=== PATIENT | female | born 1965 | race African-American/Black ===

== ENCOUNTER 2017-12-15 09:47 | Inpatient (IN) | payer OTHER, SELFPAY ==
[~2017-12-15 09:47] MED LIST: ISOVUE-370 76%-LOCM 1 ML ONE
[2017-12-15] MEDS ORDERED: Succinylcholine Chloride 20 MG/ML 10 ml SYRINGE FS ONE (10:18)
[2017-12-15] MEDS ORDERED: Naloxone HCl 2 mg/2 ml Syringe ONE (10:29)
--- NOTE | 2017-12-15 10:35 | CT ---
CT HEAD WITHOUT CONTRAST: Date: 12/15/17 Multiple axial tomograms obtained through the head without IV enhancement. INDICATION: Stroke alert with left side weakness. Comparison made to prior head CT of 09/22/16. FINDINGS: No evidence of hemorrhage or mass. No acute cortical infarct identified. IMPRESSION: No acute finding. Findings relayed to Dr. Saini at 1000 hours. CODE CR. POS: [facility]
--- NOTE | 2017-12-15 11:10 | RAD ---
PORTABLE CHEST 1 VIEW: Date: 12/15/17 Time: 1047 hours HISTORY: Left-sided weakness. FINDINGS: Comparison made with exam of 04/20/17. There is continued elevation of the right hemidiaphragm. Heart size is normal. No confluent areas of consolidation, pneumothoraces, or pleural effusions are seen. IMPRESSION: No radiographic evidence of acute cardiopulmonary process. POS: OFF
[2017-12-15 11:28] LABS: Amphetamine Not Detected (NotDetected); Barbiturates Screen Not Detected (NotDetected); Benzodiazepine Screen Not Detected (NotDetected); Cocaine Metabolite Screen Not Detected (NotDetected); Medtox Control Line Valid? VALID (VALID); Medtox Reader # READER 1; Methadone Not Detected (NotDetected); Methamphetamine Not Detected (NotDetected); Opiate Screen Not Detected (NotDetected); Oxycodone Screen Not Detected (NotDetected); Phencyclidine (PCP) Not Detected (NotDetected); THC/Cannabinoid Screen Not Detected (NotDetected); Tricyclic Screen Not Detected (NotDetected)
[2017-12-15 11:32] LABS: Bilirubin Negative (Negative); Blood, Urine Negative (Negative); Glucose, Urine (Dipstick) >=1000 mg/dL (Negative); Leukocyte Negative (Negative); Nitrite Negative (Negative); Protein, Urine (Dipstick) Negative (Neg-Trace); Urobilinogen 0.2 mg/dL (0.2-1.0)
[2017-12-15 11:33] LABS: Clarity CLEAR (Clear); Pregnancy Test - Urine (BHCG) Negative (Negative); Pregu Control Background? CLEAR/WHITE (CLR/WHITE); Pregu Control Bar Appear? YES (CONTROL BAR)
--- NOTE | 2017-12-15 11:39 | CT ---
CT PERFUSION EVALUATION WITH CONTRAST CTA OF THE HEAD WITH IV CONTRAST AND 3D REFORMATTED IMAGING CTA OF THE NECK WITH IV CONTRAST AND 3D REFORMATTED IMAGING: INDICATION: Stroke alert examination for left-sided weakness performed by Dr. Saini. COMPARISON: Noncontrast CT examination of the brain dated 12/15/17 at 9:55 a.m. FINDINGS: PERFUSION EVALUATION: No asymmetric blood flow, blood volume, or abnormal mean transit time is evident to suggest acute inf arct. CTA OF THE HEAD: No hemodynamically significant stenosis, occlusion, or aneurysmal formation is seen involving the ant erior cerebral artery, middle cerebral artery, internal carotid arteries, basilar, E[employer]ING [employer], and intracran ial vertebral arteries. No area of abnormal enhancement is evident. Septum pellucidum and third ventricle are midline. The cortical subcortical differentiation appears preserved. Visualized soft tissues of the head appear within normal limits. There are a few partially opacified right mastoid air cells. Paranasal sinuses are clear. The skull is intact. CTA OF THE NECK: This exam is compared to a recently performed CTA of the chest dated 12/08/16. The suspicious nodular opacity within the superior segment of the right lower lobe is better detailed on a recently perform ed CTA of the chest. Right hilar enlarged lymph nodes are similar. Incidental note is made of an an omalous draining pulmonary vein from the region of the lingula and left upper lobe extending up to th e level of the brachiocephalic. There is some mild vascular calcification involving the aortic arch. Brachiocephalic, left common carotid, and left subclavian artery appear widely patent. The right s ubclavian artery appears widely patent. The vertebral artery origin and cervical course of the verte bral arteries are widely patent. The common carotid arteries bilaterally appear widely patent. Ther e is a retropharyngeal course of the common carotid arteries around the mid cervical region. The bif urcation is in a retropharyngeal location. No hemodynamically significant stenosis is evident involv ing the cervical ICA. There is some suspected atherosclerotic irregularity involving the petrous seg ment of both ICAs. There is some mild to moderate atherosclerotic irregularity involving the precave rnous and cavernous ICAs bilaterally. Visualized aerodigestive tract appears within normal limits. There is a 9 mm hypodensity within the left thyroid lobe. There is a 1 cm hypodensity within the right mid thyroid lobe. No pathologically enlarged lymph nodes are seen within the neck. No definite acute osseous abnormality is evident. IMPRESSION: 1. CT perfusion evaluation demonstrates no evidence to suggest the presence of acute infarct. 2. No hemodynamically significant stenosis, occlusion, or aneurysmal formation seen. There is some mild to moderate atherosclerotic irregularity involving the precavernous and cavernous internal carot id arteries bilaterally. There is some mild atherosclerotic irregularity involving the petrous segme nts of both internal carotid arteries. 3. 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 4. Right lower lobe superior segment pulmonary nodule suspicious for malignancy with associated righ t hilar lymph nodes better detailed on the CTA of the thorax 12/08/16. 4. Findings are discussed with Dr. Saini at 10:20 a.m. on 12/15/17. CODE CR POS: [facility]
[2017-12-15 11:43] LABS: #Eosinphils 0.2 thou/uL (0.0-0.7); #Lymphocytes 2.3 thou/uL (1.20-3.40); #Monocytes 0.5 thou/uL (0.11-0.59); #Neutrophils 5.7 thou/uL (1.40-6.50); %Basophils 0.4 % (0.0-1.0); %Eosinophils 2.8 % (0.0-10.0); %Lymphocytes 26.8 % (21.0-51.0); %Monocytes 5.2 % (0.0-10.0); %Neutrophils 64.8 % (42.0-75.0); Hemoglobin 13.4 g/dL (12.0-16.0); Mean Corpuscular HGB CONC 30.7 g/dL (32.0-36.0); Mean Corpuscular Hemoglobin 24.1 pg (27.0-31.0); Mean Corpuscular Volume 78.5 fl (81.0-99.0); Mean Platelet Volume 6.7 fL (7.4-10.4); Platelet Count 263 thou/uL (130-400); RBC Distribution Width 13.6 % (11.5-14.5); Red Blood Cell (RBC) Count 5.56 mill/uL (4.20-5.40); White Blood Cell (WBC) Count 8.7 thou/uL (4.8-10.8)
[2017-12-15 12:02] LABS: ALT (SGPT) 12 U/L (8-55); AST (SGOT) 13 U/L (5-34); Albumin 3.4 g/dL (3.5-5.0); Alkaline Phosphatase 171 U/L (40-150); Anion Gap 13 mmol/L (10-20); BUN (Urea Nitrogen) 9 mg/dL (7.0-18.7); Bilirubin, Total 0.5 mg/dL (0.2-1.2); CK (CPK) 68 U/L (29-168); Calc. Creatinine Clearance 0 mL/min (70-130); Carbon Dioxide 23 mmol/L (22-29); Chloride 99 mmol/L (98-107); Estimated GFR-MDRD Greater than 90; Globulin 3.6 g/dL (2.4-3.5); Glucose 343 mg/dL (70-105); Potassium 4.3 mmol/L (3.5-5.1); Sodium 131 mmol/L (136-145)
[2017-12-15 12:07] LABS: CKMB 2.3 ng/mL (0-6.6); Troponin I Less than 0.010 ng/mL (< 0.028)
[2017-12-15 14:36] LABS: Troponin I Less than 0.010 ng/mL (< 0.028)
[2017-12-15] MEDS ORDERED: Bisacodyl 5 MG TAB PO PRN (15:47)
[2017-12-15] MEDS ORDERED: Dextrose 50% Abboject 50 ML SYRINGE SLOW IVP PRN (15:50)
[2017-12-15] MEDS ORDERED: Dextrose 5% in Water 1,000 ML IV PRN (15:50)
[2017-12-15 16:09] VITALS: BMI 48.2
[2017-12-15 17:30] LABS: Troponin I Less than 0.010 ng/mL (< 0.028)
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
[2017-12-15] MEDS: HumaLOG 300 UNITS/3 ML VIAL SC PRN (22:36)
--- NOTE | 2017-12-16 01:41 | CON ---
DATE OF CONSULTATION: 12/15/2017 CARDIOLOGY CONSULTATION: PRIMARY FISHER TROLL LINE: Dr. Wong Hayes. REASON FOR CONSULTATION: Episode of unresponsiveness, possible syncope. HISTORY OF PRESENT ILLNESS: Tawanda is a pleasant 52-year-old woman. The patient had an episode of u nresponsiveness today as will be outlined below. The patient's history is obtained from the spouse, her . He said they went to bed about 9 o'c lock, yesterday morning about 4:42, she woke up and then went back to sleep. Her subsequentl y found her unresponsive, trying to awaken her, but was unable to do so. The family had to call an a mbulance as she would not respond. In the emergency room, the patient was extremely unresponsive and was about to be intubated for airway protection. She was given Narcan and ultimately woke up and di d not require intubation since she has been alert and oriented. Imaging did not reveal stroke. No e tiology of her symptoms has been found so far. REVIEW OF SYSTEMS: Constitutional: No significant weight gain or loss. Vision: No changes. Hearin g: No changes. Pulmonary: No cough or wheezing. Gastrointestinal: No nausea, vomiting, or diarrh ea. Skin: No rashes. Neurologic: No unilateral weakness or numbness. Psychiatric: No unusual de pression or anxiety. Hematologic: No unusual bruising. Genitourinary: No burning with urination. PAST MEDICAL HISTORY: 1. Sarcoidosis. 2. Diabetes. 3. Asthma. PAST SURGICAL HISTORY: Tubal ligation and LINQ recorder placement. SOCIAL HISTORY: No tobacco or alcohol. FAMILY HISTORY: Diabetes. ALLERGIES: LATEX. MEDICATIONS: 1. ProAir. 2. Norvasc. 3. Lipitor. 4. Insulin. 5. Synthroid. PHYSICAL EXAMINATION: GENERAL: A pleasant patient, in no distress. VITAL SIGNS: Her blood pressure 135/94, pulse 90, it is regular. She is 5 feet 1 inch tall, 255 margie nds, BMI is 48.2. HEENT: Eyes: Sclerae nonicteric. Mouth: mucous membranes are moist. NECK: Supple, no lymphadenopathy. LUNGS: Clear, no wheezing, rales or rhonchi. CARDIAC: Normal S1, normal S2. There is no murmur, rub or gallop. ABDOMEN: Obese, nontender, no hepatosplenomegaly. EXTREMITIES: Warm, dry, no clubbing or cyanosis. There is no edema. SKIN: Warm and dry. PERTINENT LABORATORY AND X-RAY FINDINGS: Troponin levels were negative. Sodium 131. Glucose 343. CT scan did not reveal evidence of stroke. ASSESSMENT: 1. Episode of unresponsiveness profound unknown etiology. 2. Previous syncopal episode. PLAN: 1. LINQ will be interrogated. 2. Repeat echocardiogram. 3. Dr. Hayes to check the patient tomorrow.
[2017-12-16 05:34] LABS: #Eosinphils 0.2 thou/uL (0.0-0.7); #Lymphocytes 2.5 thou/uL (1.20-3.40); #Monocytes 0.6 thou/uL (0.11-0.59); #Neutrophils 7.6 thou/uL (1.40-6.50); %Basophils 0.4 % (0.0-1.0); %Eosinophils 1.8 % (0.0-10.0); %Monocytes 5.1 % (0.0-10.0); %Neutrophils 69.8 % (42.0-75.0); Hemoglobin 11.5 g/dL (12.0-16.0); Mean Corpuscular HGB CONC 31.4 g/dL (32.0-36.0); Mean Corpuscular Hemoglobin 24.6 pg (27.0-31.0); Mean Corpuscular Volume 78.3 fl (81.0-99.0); Mean Platelet Volume 6.3 fL (7.4-10.4); Platelet Count 310 thou/uL (130-400); RBC Distribution Width 13.7 % (11.5-14.5); Red Blood Cell (RBC) Count 4.67 mill/uL (4.20-5.40); White Blood Cell (WBC) Count 10.8 thou/uL (4.8-10.8)
[2017-12-16 05:55] LABS: Anion Gap 12 mmol/L (10-20); BUN (Urea Nitrogen) 10 mg/dL (7.0-18.7); Calc. Creatinine Clearance 150 mL/min (70-130); Calcium 8.2 mg/dL (7.8-10.44); Carbon Dioxide 25 mmol/L (22-29); Chloride 100 mmol/L (98-107); Estimated GFR-MDRD 89; Glucose 413 mg/dL (70-105); Potassium 4.1 mmol/L (3.5-5.1); Sodium 133 mmol/L (136-145)
[2017-12-16] MEDS: HumaLOG 300 UNITS/3 ML VIAL SC PRN ×4 (07:54→21:54)
[2017-12-16] MEDS: Enoxaparin Sodium 40 MG/0.4 ML SYRINGE SC SCH (08:51)
--- NOTE | 2017-12-16 10:08 | CON ---
DATE OF CONSULTATION: 12/15/2017 Ms. Neff who has seen Dr. Xie in for many years. She is seen in the hospital today because she is unable to wake up. Unresponsive. It looks like cooper cking her records from 2012, she has similar issues with not awaken up. She did have a CT head and neck angio, which showed the right superior segment nodule in the right hi lar nodule, which apparently has been stable for at least 2 years. She had a cough, chest pain, chil ls, sweats. She says she sees Dr. Xie for sarcoidosis. PAST MEDICAL HISTORY: Asthma, diabetes, sarcoidosis, high cholesterol. The last time she saw Dr. Singh tobias in the office about 2 years ago. Though, she has had multiple imaging studies done in the hospital. During the period, Dr. Xie has been consulted. She had multiple imaging studies of the brain because of unknown neurological issues . On 04/2017, she was hospitalized and seen by Cardiology for syncopal episode. Cardiac workup done at that time told was normal. PAST SURGICAL HISTORY: Tubal ligation. SOCIAL AND FAMILY HISTORY: No alcohol or tobacco abuse. MEDICATIONS: List of medicine home on amlodipine 5, nortriptyline 25, Synthroid 25, insulin, Lipito r 10, albuterol as needed. SOCIAL HISTORY: Unremarkable. REVIEW OF SYSTEMS: Otherwise, 10-point negative. PHYSICAL EXAMINATION: GENERAL: Appears to be in no acute distress, obese patient. VITAL SIGNS: Blood pressure of 135/94, sats are 96% on room air, respiration rate 18, temperature 98 . CHEST: No crackles, rubs, or wheezing. CARDIAC: Normal S1, S2. No gallops. ABDOMEN: Soft. No masses. LABORATORY DATA: White count 8000, H and H 13 and 43, platelet count is normal. Sugar is 346, crea tinine is normal. Please note, a chest x-ray was completely normal. CT of the head and neck, brain perfusion was done shows no evidence of acute infarct. No evidence of stenosis, right lower lobe superior segment nodule, right hilar lymph node. IMPRESSION: 1. Unable to wake up, etiology unclear. 2. Multiple episodes of syncope. 3. Asthma. 4. Sleep apnea, diabetes, morbid obesity, abnormal CT. Dr. Xie seen in the past. We will let him know about the patient's admission. Old records apparen tly show a similar problem. PET scan may be appropriate to rule out any evidence of malignancy, but I doubt with continued stability of the lesion that this is a malignant process. She is a nonsmoker. She probably has sleep apnea. She has been tested, but never went back for a titration study. She probably needs to have another repeat sleep study. We will notify Dr. Xie. This is a consultation, 70 minutes, 50% direct patient care.
--- NOTE | 2017-12-16 12:22 | PDOC.CTH ---
Cardiology Progress Note - Subjective She is doing better now. She has not had any more altered mentation. Back top baseline. - Objective Vital Signs Temp Pulse Pulse Pulse Resp BP BP 12/16/17 11:34 98.0 F 95 16 12/16/17 10:15 101 H 109 H 161/92 H 151/86 H 12/16/17 08:45 98.2 F 105 H 20 12/16/17 08:00 98.2 F 105 H 20 12/16/17 03:31 98.4 F 90 16 BP Pulse Ox 12/16/17 11:34 149/92 H 94 L 12/16/17 10:15 12/16/17 08:45 12/16/17 08:00 175/76 H 96 12/16/17 03:31 109/64 93 L Weight 255 lb 12/15/17 12/16/17 12/17/17 06:59 06:59 06:59 Intake Total 960 Balance 960 - Physical Examination General/Neuro: alert & oriented x3, NAD Neck: no JVD present Lungs: CTA, unlabored respirations Heart: RRR Abdomen: NT/ND Extremities: + edema B (trace) - Telemetry Telemetry Rhythm: NSR - Labs Result Diagrams: 12/16/17 04:48 12/16/17 04:48 Troponin/CKMB CK-MB (CK-2) 2.3 ng/mL (0-6.6) 12/15/17 10:48 Troponin I Less than 0.010 ng/mL (< 0.028) 12/15/17 16:56 - Assessment/Plan 1. AMS 2. Syncope 3. 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 5. Lung nodule, may be related to sarcoidosis. PLAN - No arrhythmias seen on LINQ during episode of syncope. Telemetry during AMS was also unremarkable as well as BP. - Unlikely that her AMS is related to a cardiac issue. - Awaiting neurology evaluation.
[2017-12-16] MEDS ORDERED: Nitroglycerin 0.4 MG TAB (25 Tab Bottle) ONE (14:44)
[2017-12-16] MEDS ORDERED: Nitroglycerin 0.4 MG TAB (25 Tab Bottle) SL PRN (14:56)
[2017-12-16 15:18] LABS: Troponin I Less than 0.010 ng/mL (< 0.028)
--- NOTE | 2017-12-16 15:45 | PDOC.PN ---
- Subjective Encounter Start Date: 12/16/17 Encounter Start Time: 10:00 Pt seen for followup re: acute encephalopathy. Denies chest pain or shortness of breath. Reports RUE weakness. - Objective MAR Reviewed: Yes Vital Signs & Weight: Vital Signs (12 hours) Temp Pulse Pulse Pulse Resp BP BP 12/16/17 15:12 98.4 F 105 H 16 12/16/17 11:34 98.0 F 95 16 12/16/17 10:15 101 H 109 H 161/92 H 151/86 H 12/16/17 08:45 98.2 F 105 H 20 12/16/17 08:00 98.2 F 105 H 20 12/16/17 07:15 103 H 105 H 142/68 H 175/76 H BP Pulse Ox 12/16/17 15:12 142/92 H 92 L 12/16/17 11:34 149/92 H 94 L 12/16/17 10:15 12/16/17 08:45 12/16/17 08:00 175/76 H 96 12/16/17 07:15 Weight Weight 255 lb I&O: 12/15/17 12/16/17 12/17/17 06:59 06:59 06:59 Intake Total 960 Balance 960 Result Diagrams: 12/16/17 04:48 12/16/17 04:48 Additional Labs: Accuchecks 12/16/17 12/16/17 12/15/17 10:57 05:43 20:46 POC Glucose 495 H 418 H 341 H EKG Reviewed by me: Yes (Tele: NSR) Phys Exam - Physical Examination Morbid obesity HEENT: PERRLA, moist MMs, sclera anicteric, oral pharynx no lesions Neck: no nodes, no JVD, supple, full ROM Respiratory: no wheezing, no rales, no rhonchi, clear to auscultation bilateral Cardiovascular: RRR, no rub Gastrointestinal: soft, non-tender, positive bowel sounds distended Neurological: non-focal, normal sensation, moves all 4 limbs Power 4+/5 RUE, 5/5 other 3 extremities Psychiatric: normal affect, A&O x 3 Skin: no rash Dx/Plan (1) Encephalopathy acute Code(s): G93.40 - ENCEPHALOPATHY, UNSPECIFIED Status: Acute Comment: Improved, await neurology input (2) Weakness Code(s): R53.1 - WEAKNESS Status: Acute Comment: RUE weakness is not consistent, continue to monitor (3) Asthma Code(s): J45.909 - UNSPECIFIED ASTHMA, UNCOMPLICATED Status: Chronic Qualifiers: Asthma severity: mild intermittent Comment: stable (4) DM2 (diabetes mellitus, type 2) Status: Chronic Comment: accuchecks, insulin sliding scale (5) HLD (hyperlipidemia) Code(s): E78.5 - HYPERLIPIDEMIA, UNSPECIFIED Status: Chronic Comment: continue statin (6) HTN (hypertension) Code(s): I10 - ESSENTIAL (PRIMARY) HYPERTENSION Status: Chronic Qualifiers: Hypertension type: essential hypertension Qualified Code(s): I10 - Essential (primary) hypertension Comment: Monitor vital signs, titrate antihypertensives as needed (7) Sarcoidosis Code(s): D86.9 - SARCOIDOSIS, UNSPECIFIED Status: Chronic Comment: Appreciate pulmonology input (8) Uterine bleeding Code(s): N93.9 - ABNORMAL UTERINE AND VAGINAL BLEEDING, UNSPECIFIED Status: Chronic Comment: needs to see Gyne when stable - Plan * . Review of Systems - Review of Systems Constitutional: weakness. negative: fever, chills, sweats, malaise Respiratory: negative: Cough, Shortness of Breath, Hemoptysis, SOB with Excertion, Pleuritic Pain, Wheezing Cardiovascular: negative: chest pain, palpitations, orthopnea, paroxysmal nocturnal dyspnea, edema, light headedness Gastrointestinal: negative: Nausea, Vomiting, Abdominal Pain, Diarrhea, Constipation, Melena, Hematochezia Skin: negative: Rash, Lesions, Christopher, Bruising Neurological: Weakness - Medications/Allergies Allergies/Adverse Reactions: Allergies Allergy/AdvReac Type Severity Reaction Status Date / Time latex AdvReac Verified 12/15/17 15:40 Medications: Current Medications Bisacodyl (Dulcolax) 10 mg PO DAILYPRN PRN PRN Reason: Constipation Dextrose/Water (Dextrose 50%) 25 gm SLOW IVP PRN PRN PRN Reason: Hypoglycemia Enoxaparin Sodium (Lovenox) 40 mg SC 0900 MAGDIEL Last Admin: 12/16/17 08:51 Dose: 40 mg Glucagon (Glucagon) 1 mg IM PRN PRN PRN Reason: Hypoglycemia Dextrose/Water (D5w) 1,000 mls @ 0 mls/hr IV .Q0M PRN; As Directed PRN Reason: Hypoglycemia Insulin Human Lispro (Humalog) 0 units SC .MILD SLIDING SCALE PRN PRN Reason: Mild Correctional Scale Last Admin: 12/16/17 12:12 Dose: 6 unit Insulin Human Lispro (Humalog) 0 units SC .MILD SLIDING SCALE PRN; Protocol PRN Reason: CUSTOM BEDTIME SLIDING SCALE Last Admin: 12/15/17 22:36 Dose: 5 unit Nitroglycerin (Nitrostat) 0.4 mg SL Q5MIN PRN PRN Reason: Chest Pain Last Admin: 12/16/17 14:45 Dose: 0.4 mg
[2017-12-16] MEDS ORDERED: PROVENTIL INHALER 6.7 G (200 INHALATIONS) INH PRN (16:33)
[2017-12-16] MEDS ORDERED: NPH, Human Insulin Isophane 300 UNIT/3 ML VIAL SC SCH (17:00)
[2017-12-16 20:57] LABS: Troponin I Less than 0.010 ng/mL (< 0.028)
[2017-12-16] MEDS: Nortriptyline HCl 25 MG CAP PO SCH (21:52)
[2017-12-16] MEDS: traMADol HCl 50 MG TAB PO PRN (21:57)
--- NOTE | 2017-12-16 23:42 | CON ---
DATE OF CONSULTATION: 12/16/2017 CONSULTING PHYSICIAN: Hospitalist Service. IMPRESSION: 1. Possible subclinical seizure. 2. Sarcoid. 3. Diabetes. 4. Asthma. 5. Obesity. 6. Hyperlipidemia. 7. Hypertension. PLAN: 1. EEG. 2. Monitor for further events before committing to anticonvulsant therapy. Ms. Neff is a 52-year-old black female with the above noted list of problems. She remembers being at home around 4:00 when she lost consciousness. She did not awaken until she was in the hospital. Upon awakening, she noted she had a headache. She was a bit dizzy and the right side of her body fel t strange. She had a CT of the brain and CTA, which were both unremarkable. Her carotids were clear . Her blood glucose was bit elevated, but otherwise her lab work was unremarkable. She has been al luated by Cardiology does not feel the event was cardiac related. She reports a history of a syncopa l event 2 years ago, but otherwise has not had any other episodes. PAST MEDICAL HISTORY: As listed above. ALLERGIES: LATEX. SOCIAL HISTORY: There is some reported drug and alcohol use. FAMILY HISTORY: Noncontributory. REVIEW OF SYSTEMS: No complaints of any prior neurologic events. PHYSICAL EXAMINATION: GENERAL: She is an overweight middle-aged woman lying in bed in no distress. HEENT: All within normal limits. NEUROLOGIC: She is alert and cooperative. Her speech is fluent and clear. Exam is nonfocal. She d oes not have any abnormal movements. She can walk independently, but does so slowly. EKG, normal sinus rhythm. SUMMARY: Given the duration of the unconsciousness without apparent etiology. A subclinical seizure remains a possibility be happy to follow up with her as an outpatient.
[2017-12-17] MEDS: Levothyroxine Sodium 25 MCG TAB PO SCH (06:19)
[2017-12-17] MEDS: HumaLOG 300 UNITS/3 ML VIAL SC PRN (06:19)
[2017-12-17] MEDS ORDERED: NPH, Human Insulin Isophane 300 UNIT/3 ML VIAL SC SCH (08:00)
[2017-12-17] MEDS: Amlodipine 5 MG TAB PO SCH (09:48)
[2017-12-17] MEDS: Atorvastatin Calcium 10 MG TAB PO SCH (09:49)
[2017-12-17] MEDS: traMADol HCl 50 MG TAB PO PRN (09:50)
[2017-12-17] MEDS: azaTHIOprine 50 MG TAB PO SCH (09:50)
[2017-12-17] MEDS: Enoxaparin Sodium 40 MG/0.4 ML SYRINGE SC SCH (10:30)
--- NOTE | 2017-12-17 11:02 | CON ---
DATE OF CONSULTATION: 12/16/2017 HISTORY OF PRESENT ILLNESS: Ms. Neff is in the hospital with complaints of altered mental status prior to calling EMS. She apparently vomited according to the admission history and physical, she does not recall any of this. We are consulted because of her presence in the hospital. PAST MEDICAL HISTORY: 1. 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 She was treated initially with steroids followed by Imuran. She has a long history taken back many years, stopping her Imuran whenever she can make appointments or does not feel like she needs it. 2. Diabetes. 3. 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 4. History of elevated liver enzymes, felt to be secondary to sarcoidosis. 5. History of mediastinoscopy to obtain a diagnosis of noncaseating granulomas. 6. History of herniated disk. 7. History of syncope. 8. History of a learning disability. 9. History of obesity. 10. History of tremendous weight loss with a neurological presentation for sarcoid. 11. History of PEG placement when she presented with sarcoid involving swallowing her brain creating swallowing dysfunction. There is slight resolution of all of her symptoms with treatment of her sarcoid with steroids followed by Imuran. 12. History of reflux disease. 13. History of cholecystectomy. 14. History of tubal ligation. 15. History of asthma. 16. History of foot surgery. 17. History of multiple frequent emergency visits here. 18. History of placement of LINQ recorder. FAMILY HISTORY: Positive for diabetes. SOCIAL HISTORY: She does not smoke, does not drink. She currently does not use drugs. ALLERGIES: She reports LATEX intolerance. MEDICATIONS: She was on ProAir, Norvasc, Lipitor, insulin, Synthroid, prior to admission. She had been seen by me for several years. REVIEW OF SYSTEMS: 12 point system review otherwise negative. PHYSICAL EXAMINATION: GENERAL: Patient has no recollection of vomiting today. VITAL SIGNS: She is afebrile. Heart rate in the 90s, respiratory rate is 16, blood pressure 161/92. HEENT: Pupils are equal. Sclerae is anicteric. Extraocular movements are full. NECK: Supple, no lymphadenopathy. LUNGS: Clear. HEART: Regular rhythm. S1 and S2 are normal. ABDOMEN: Soft and nontender. EXTREMITIES: Without clubbing, cyanosis, or edema. LABORATORY DATA: White count is 10.8, hemoglobin 11.5, platelets 310. Electrolytes are normal. Glucose 413. Elevated alkaline phosphatase. PRESENTATION: 1. Poorly controlled diabetes. 2. Altered mental status, followed by complaints of muscle weakness of unclear etiology. Magnetic resonance imaging has not been done. Noncontrast head CT showed nothing. Pulmonary nodule was noted. IMPRESSION: Sarcoidosis. It is unlikely that the nodular density is anything more than noncaseating granuloma. She continues to have intermittent multisystem symptoms and radiologic manifestations of active sarcoid. She never has had active pulmonary progressive sarcoid it is all been for most extra pulmonary nodule. Obviously, we will need to be followed as an outpatient. This is a 50 minute consult , greater than 50% of the time was spent on the unit coordinating care. CORBY
[2017-12-17] MEDS ORDERED: Dextrose 50% Abboject 50 ML SYRINGE SLOW IVP PRN (11:32)
[2017-12-17] MEDS ORDERED: Dextrose 5% in Water 1,000 ML IV PRN (11:32)
--- NOTE | 2017-12-17 11:36 | PDOC.PN ---
- Subjective Encounter Start Date: 12/17/17 Encounter Start Time: 11:34 -: old records requested/rev Subjective: nsg notes rev, dilip ovn, no new c/o but still feels "not well" - SO at [facility] -: de. apparently intermittent decreased mentation has been a progressive -: issue over the past few weeks along with several months of progressively elevated baseline blood glucose on home accuchecks. pt endorses having 3-4 loose BM for 1-2 weeks now accompanied by decreased oral intake but she states she has been very thirsty and continues to try and drink more water. also c/o of a recent "cold" - Objective Vital Signs & Weight: Vital Signs (12 hours) Temp Pulse Resp BP BP Pulse Ox 12/17/17 09:48 99 114/72 12/17/17 07:05 98.3 F 99 18 114/72 95 12/17/17 04:00 98.4 F 99 20 111/78 98 12/17/17 00:00 98.0 F 95 16 125/66 95 Weight Weight 255 lb I&O: 12/16/17 12/17/17 12/18/17 06:59 06:59 06:59 Intake Total 960 Balance 960 Result Diagrams: 12/16/17 04:48 12/16/17 04:48 Additional Labs: Accuchecks 12/17/17 12/16/17 12/16/17 04:42 20:48 17:10 POC Glucose 533 H 412 H 336 H 12/16/17 10:57 POC Glucose 495 H Phys Exam - Physical Examination Constitutional: NAD lying in hospital bed HEENT: PERRLA, sclera anicteric, oral pharynx no lesions slightly dry mm Respiratory: no wheezing, no rales, no rhonchi, clear to auscultation bilateral Cardiovascular: RRR, no significant murmur, no rub Gastrointestinal: soft, non-tender, no distention, positive bowel sounds Musculoskeletal: no edema, pulses present Neurological: moves all 4 limbs Psychiatric: A&O x 3 Deviation from normal: flat affect Dx/Plan - Plan * 52F hx of sarcoid p/w CC of altered mental status AMS * per description appears to be improved from event that precipitated admission * question of deviation from baseline with decreased mental status per SO at bedside * ? related to elev blood glucose levels * apprec card c/s * apprec neuro c/s * apprec pulm c/s concern for HNNK * diarrhea and decreased PO intake with longstanding hx of IDDM * start IVF NS @100, close I/O, check serum osm, A1C as well * monitor diarrhea and I/O * increase basal insulin but also increase short acting. if no improvement today , or elev serum osm >320, low theshold to initiate insulin gtt * d/w patient's at bedside * could have contributed to presentation IDDM, as above sarcoid, stable diet: diabetic activity: as marya, PT c/s dvt ppx Review of Systems - Medications/Allergies Allergies/Adverse Reactions: Allergies Allergy/AdvReac Type Severity Reaction Status Date / Time latex AdvReac Verified 12/15/17 15:40 Medications: Current Medications Albuterol Sulfate (Proventil Hfa) 2 puff INH Q4H PRN PRN Reason: SOB &/or Wheezing Amlodipine Besylate (Norvasc) 5 mg PO DAILY [facility] Last Admin: 12/17/17 09:48 Dose: 5 mg Aspirin (Aspirin Chewable) 81 mg PO DAILY [facility] Last Admin: 12/17/17 09:49 Dose: 81 mg Atorvastatin Calcium (Lipitor) 10 mg PO DAILY [facility] Last Admin: 12/17/17 09:49 Dose: 10 mg Azathioprine (Imuran) 100 mg PO DAILY [facility] Last Admin: 12/17/17 09:50 Dose: 100 mg Bisacodyl (Dulcolax) 10 mg PO DAILYPRN PRN PRN Reason: Constipation Dextrose/Water (Dextrose 50%) 25 gm SLOW IVP PRN PRN PRN Reason: Hypoglycemia Dextrose/Water (Dextrose 50%) 25 gm SLOW IVP PRN PRN PRN Reason: Hypoglycemia Enoxaparin Sodium (Lovenox) 40 mg SC 0900 [facility] Last Admin: 12/17/17 10:30 Dose: 40 mg Glucagon (Glucagon) 1 mg IM PRN PRN PRN Reason: Hypoglycemia Glucagon (Glucagon) 1 mg IM PRN PRN PRN Reason: Hypoglycemia Dextrose/Water (D5w) 1,000 mls @ 0 mls/hr IV .Q0M PRN; As Directed PRN Reason: Hypoglycemia Dextrose/Water (D5w) 1,000 mls @ 0 mls/hr IV .Q0M PRN; As Directed PRN Reason: Hypoglycemia Sodium Chloride (Normal Saline 0.9%) 1,000 mls @ 100 mls/hr IV .Q10H MAGDIEL Insulin Human NPH (Humulin N) 50 unit SC QAM-WM MAGDIEL Insulin Human NPH (Humulin N) 50 unit SC QPM-WM MAGDIEL Insulin Human Regular (Humulin R) 0 units SC .MODERATE SLIDING SC PRN PRN Reason: Moderate Correctional Scale Levothyroxine Sodium (Synthroid) 25 mcg PO 0600 [facility] Last Admin: 12/17/17 06:19 Dose: 25 mcg Nitroglycerin (Nitrostat) 0.4 mg SL Q5MIN PRN PRN Reason: Chest Pain Last Admin: 12/16/17 14:45 Dose: 0.4 mg Nortriptyline HCl (Pamelor) 25 mg PO HS [facility] Last Admin: 12/16/17 21:52 Dose: 25 mg Tramadol HCl (Ultram) 50 mg PO Q8H PRN PRN Reason: Pain Last Admin: 12/17/17 09:50 Dose: 50 mg
[2017-12-17 12:07] LABS: Hemoglobin A1c 14.3 % (4.0-6.0)
[2017-12-17] MEDS: Insulin Regular 300 UNITS/3 ML VIAL SC PRN ×3 (12:09→22:44)
[2017-12-17] MEDS: Sodium Chloride 0.9% 1,000 ML IV SCH ×2 (12:11→23:32)
--- NOTE | 2017-12-17 15:29 | PRG ---
DATE OF SERVICE: 12/17/2017 SUBJECTIVE: Ms. Neff started her Imuran today. OBJECTIVE: VITAL SIGNS: She is afebrile, heart rate 79, blood pressure 114/70, respiratory rate 14, oximetry is 96 on room air. LUNGS: Clear. HEART: Regular rhythm. ABDOMEN: Soft. IMPRESSION: 1. Extrapulmonary sarcoid with multiorgan involvement. Imuran has been restarted. 2. Diabetes. Because of her marginal compliance with followup with medical management, I would not treat her with steroids, especially with her diabetes. I will be happy to continue to follow her.
--- NOTE | 2017-12-17 16:45 | PDOC.CTH ---
Cardiology Progress Note - Subjective No new issues or complaints. - Objective Vital Signs Temp Pulse Resp BP BP Pulse Ox 12/17/17 15:33 98.2 F 109 H 18 118/78 95 12/17/17 11:57 98.0 F 101 H 14 152/97 H 96 12/17/17 09:48 99 114/72 12/17/17 08:00 98.0 F 101 H 14 95 12/17/17 07:05 98.3 F 99 18 114/72 95 Weight 255 lb 12/16/17 12/17/17 12/18/17 06:59 06:59 06:59 Intake Total 960 Balance 960 - Physical Examination General/Neuro: alert & oriented x3, NAD Neck: no JVD present Lungs: CTA, unlabored respirations Heart: RRR Abdomen: NT/ND Extremities: + edema B (1+) - Telemetry Telemetry Rhythm: NSR - Labs Result Diagrams: 12/16/17 04:48 12/16/17 04:48 Troponin/CKMB CK-MB (CK-2) 2.3 ng/mL (0-6.6) 12/15/17 10:48 Troponin I Less than 0.010 ng/mL (< 0.028) 12/16/17 20:20 - Assessment/Plan 1. AMS 2. Syncope 3. 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 PLAN - No new recs. Will sign out please call with any questions.
[2017-12-17] MEDS: NPH, Human Insulin Isophane 300 UNIT/3 ML VIAL SC SCH (17:22)
[2017-12-17] MEDS: Nortriptyline HCl 25 MG CAP PO SCH (20:40)
[2017-12-18] MEDS: Levothyroxine Sodium 25 MCG TAB PO SCH (05:43)
[2017-12-18] MEDS ORDERED: Midazolam HCl 2 mg/2 ml Vial ONE (07:26)
[2017-12-18] MEDS ORDERED: Fentanyl 100 MCG/2 ML VIAL ONE (07:26)
[2017-12-18] MEDS: Atorvastatin Calcium 10 MG TAB PO SCH (08:53)
[2017-12-18] MEDS: azaTHIOprine 50 MG TAB PO SCH (08:53)
[2017-12-18] MEDS: Enoxaparin Sodium 40 MG/0.4 ML SYRINGE SC SCH (08:54)
[2017-12-18] MEDS: Amlodipine 5 MG TAB PO SCH (08:54)
[2017-12-18] MEDS: Sodium Chloride 0.9% 1,000 ML IV SCH ×2 (08:56→17:49)
[2017-12-18] MEDS: NPH, Human Insulin Isophane 300 UNIT/3 ML VIAL SC SCH ×2 (08:57→17:48)
[2017-12-18] MEDS: Insulin Regular 300 UNITS/3 ML VIAL SC PRN ×2 (12:47→17:47)
--- NOTE | 2017-12-18 15:02 | EKG ---
Test Reason : Blood Pressure : / mmHG Vent. Rate : 097 BPM Atrial Rate : 097 BPM P-R Int : 160 ms QRS Dur : 080 ms QT Int : 344 ms P-R-T Axes : 046 022 040 degrees QTc Int : 436 ms Normal sinus rhythm Normal ECG Confirmed by YUNIOR CARRASCO ([id number]), film editor ADELA LOPEZ ([id number]) on 12/18/2017 3:00:36 PM Referred By: Confirmed By:YUNIOR CARRASCO
[2017-12-18] MEDS: Nortriptyline HCl 25 MG CAP PO SCH (20:28)
--- NOTE | 2017-12-18 21:59 | PRG ---
DATE OF SERVICE: 12/18/2017 SUBJECTIVE: Ms. Neff has no new complaints. OBJECTIVE: VITAL SIGNS: She is afebrile, heart rate is 106, respiratory rate is 16, oximetry is 98% on room air , blood pressure is 151/95. LUNGS: Clear. HEART: Regular rhythm. ABDOMEN: Soft. LABORATORY DATA: Glucoses have been in the 200-360 range. IMPRESSION: Extrapulmonary sarcoid with multiorgan involvement. PLAN: Continue with Imuran.
--- NOTE | 2017-12-18 23:33 | PDOC.PN ---
- Subjective Encounter Start Date: 12/18/17 Encounter Start Time: 18:00 Subjective: nsg notes rev, dilip ovn, no new c/o, SO with her at bedside. pt states she -: no longer has any chest discomfort or similar ssx to presentation. wants to -: know if she can go home soon - Objective Vital Signs & Weight: Vital Signs (12 hours) Temp Pulse Resp BP Pulse Ox 12/18/17 19:48 98.8 F 112 H 20 142/87 H 93 L 12/18/17 15:20 98.0 F 106 H 16 151/95 H 98 12/18/17 12:29 98.3 F 110 H 20 112/63 93 L Weight Weight 255 lb Result Diagrams: 12/16/17 04:48 12/16/17 04:48 Additional Labs: Accuchecks 12/18/17 12/18/17 12/18/17 20:32 16:43 11:46 POC Glucose 308 H 282 H 328 H 12/18/17 06:10 POC Glucose 206 H Phys Exam - Physical Examination Constitutional: NAD ambulating without difficulty, using walker with dec gait length HEENT: moist MMs, sclera anicteric, oral pharynx no lesions Respiratory: no wheezing, no rales, no rhonchi, clear to auscultation bilateral Cardiovascular: RRR, no significant murmur, no rub Gastrointestinal: soft, non-tender, positive bowel sounds Musculoskeletal: no edema, pulses present Neurological: moves all 4 limbs Psychiatric: normal affect, A&O x 3 Dx/Plan - Plan * 52F hx of sarcoid p/w CC of altered mental status AMS * per description appears to be improved from event that precipitated admission * question of deviation from baseline with decreased mental status per SO at bedside * ? related to elev blood glucose levels * apprec card c/s * apprec neuro c/s * apprec pulm c/s poorly controlled IDDM with A1c 14+ * diarrhea and decreased PO intake with longstanding hx of IDDM - currently resolved * no HNNK, d/c IVF, continue with home insulin regimen, long acting has been inc by 10U in both AM and PM obesity * dietary and nutritional status reviewed with pt * counseled regarding weight loss sarcoid, stable * apprec pulmonary c/s and initiation of imuran diet: diabetic activity: as marya, PT c/s dvt ppx d/c planning; pt will need [facility] service assistance Review of Systems - Medications/Allergies Allergies/Adverse Reactions: Allergies Allergy/AdvReac Type Severity Reaction Status Date / Time latex AdvReac Verified 12/15/17 15:40 Medications: Current Medications Albuterol Sulfate (Proventil Hfa) 2 puff INH Q4H PRN PRN Reason: SOB &/or Wheezing Amlodipine Besylate (Norvasc) 5 mg PO DAILY [facility] Last Admin: 12/19/17 08:24 Dose: 5 mg Aspirin (Aspirin Chewable) 81 mg PO DAILY [facility] Last Admin: 12/19/17 08:24 Dose: 81 mg Atorvastatin Calcium (Lipitor) 10 mg PO DAILY [facility] Last Admin: 12/19/17 08:24 Dose: 10 mg Azathioprine (Imuran) 100 mg PO DAILY [facility] Last Admin: 12/19/17 08:24 Dose: 100 mg Bisacodyl (Dulcolax) 10 mg PO DAILYPRN PRN PRN Reason: Constipation Dextrose/Water (Dextrose 50%) 25 gm SLOW IVP PRN PRN PRN Reason: Hypoglycemia Enoxaparin Sodium (Lovenox) 40 mg SC 0900 [facility] Last Admin: 12/19/17 08:24 Dose: 40 mg Glucagon (Glucagon) 1 mg IM PRN PRN PRN Reason: Hypoglycemia Dextrose/Water (D5w) 1,000 mls @ 0 mls/hr IV .Q0M PRN; As Directed PRN Reason: Hypoglycemia Insulin Human NPH (Humulin N) 50 unit SC QAM-WM [facility] Last Admin: 12/19/17 08:25 Dose: 50 units Insulin Human Regular (Humulin R) 0 units SC .MODERATE SLIDING SC PRN PRN Reason: Moderate Correctional Scale Last Admin: 12/19/17 06:32 Dose: 6 unit Levothyroxine Sodium (Synthroid) 25 mcg PO 0600 [facility] Last Admin: 12/19/17 06:32 Dose: 25 mcg Nitroglycerin (Nitrostat) 0.4 mg SL Q5MIN PRN PRN Reason: Chest Pain Last Admin: 12/16/17 14:45 Dose: 0.4 mg Nortriptyline HCl (Pamelor) 25 mg PO HS [facility] Last Admin: 12/18/17 20:28 Dose: 25 mg Tramadol HCl (Ultram) 50 mg PO Q8H PRN PRN Reason: Pain Last Admin: 12/17/17 09:50 Dose: 50 mg
[2017-12-19] MEDS: Sodium Chloride 0.9% 1,000 ML IV SCH (05:05)
[2017-12-19] MEDS: Levothyroxine Sodium 25 MCG TAB PO SCH (06:32)
[2017-12-19] MEDS: Insulin Regular 300 UNITS/3 ML VIAL SC PRN ×2 (06:32→10:55)
[2017-12-19 07:35] VITALS: BP 152/95; TEMP 98.5
[2017-12-19] MEDS: Amlodipine 5 MG TAB PO SCH (08:24)
[2017-12-19] MEDS: Enoxaparin Sodium 40 MG/0.4 ML SYRINGE SC SCH (08:24)
[2017-12-19] MEDS: Atorvastatin Calcium 10 MG TAB PO SCH (08:24)
[2017-12-19] MEDS: azaTHIOprine 50 MG TAB PO SCH (08:24)
[2017-12-19] MEDS: NPH, Human Insulin Isophane 300 UNIT/3 ML VIAL SC SCH (08:25)
--- NOTE | 2017-12-19 10:04 | PRG ---
DATE OF SERVICE: 12/19/2017 Cristin Neff remains stable. She is afebrile. She has mild resting tachycardia. PHYSICAL EXAMINATION: VITAL SIGNS; Respiratory rate 16, oximetry 97, blood pressure 150/95. Lungs, heart, and abdomen are unchanged. LABORATORY DATA: There is no new lab. IMPRESSION: Extrapulmonary sarcoid. PLAN: Continue Imuran.
--- NOTE | 2017-12-22 09:49 | EEG ---
Referring Physician: Susan POE EEG # [id number] TEST TYPE: ROUTINE PORTABLE REPORT: AN EEG USING THE INTERNATIONAL TEN-TWENTY SYSTEM OF ELECTRODE PLACEMENT WAS PERFORMED. The background activity is a 9 hertz alpha frequency. The patient became drowsy , but no sleep was seen. Hyperventilation and photic stimulation were unremarkable. No epileptiform features noted. IMPRESSION: THIS IS A NORMAL AWAKE AND DROWSY EEG. Buttoner: ISREAL Hip Hop Dancer: [email or web address] [email or web address]
--- NOTE | 2017-12-22 11:22 | DIS ---
DISCHARGE DIAGNOSES: 1. Metabolic encephalopathy, resolved. 2. Sarcoid. 3. Poorly controlled insulin-dependent diabetic. 4. Questionable medication compliance. 5. Obesity. BRIEF SUMMARY OF HOSPITAL COURSE: This is a 52-year-old female, who initially presented with a chief complaint of altered mental status; please see the original history and physical for full details of surrounding admission. The patient at the time of discharge was back to her baseline mentation as p er her significant other at bedside. It is felt that her altered mental status likely is related to metabolic encephalopathy, perhaps related to a degree of poor pain medication compliance and subseque nt hyperglycemia. At the time of discharge, the patient has been repeatedly counseled in regards to close outpatient followup with her primary care provider and utilization of her home medication regim en. Her listed home pharmacy was called and it appears that the patient has been long overdue to pic k up the refills of her insulin. The patient has also been initiated on a new regimen for her sarcoid. The remainder of the patient's chronic medical issues were stable during this hospitalization. CONSULTATIONS: Pulmonary Medicine in regards to sarcoid. PATIENT'S CONDITION AT DISCHARGE AND DISPOSITION: At the time of discharge, the patient is able to c omplete teach back. She is discharged to home in hemodynamically stable condition. DISCHARGE FOLLOWUP: She was asked to follow up closely with her outpatient team including her PCP, landen larsen permanent mold supervisor. Greater than 30 minutes have been spent coordinating discharge and educating the patient and calling patient's pharmacy for verification of her medications. Thank you for asking me to care for the patient. Questions or concerns, contact me at [facility].
== END 2017-12-19 11:00 | disposition home or self-care (01) | DRG 71 ==
LOC: ERS 09:47 → 2SE 13:30
PROVIDERS: ADMIT Internal Medicine; ATTEND Internal Medicine
DX: G93.41 Metabolic encephalopathy (principal); E87.1 Hypo-osmolality and hyponatremia; Z68.42 Body mass index [BMI] 45.0-49.9, adult; E11.65 Type 2 diabetes mellitus with hyperglycemia; R29.898 Other symptoms and signs involving the musculoskeletal system; D86.89 Sarcoidosis of other sites; J45.909 Unspecified asthma, uncomplicated; I10 Essential (primary) hypertension; E66.01 Morbid (severe) obesity due to excess calories; N93.9 Abnormal uterine and vaginal bleeding, unspecified; Z91.14 Patient's other noncompliance with medication regimen; Z91.040 Latex allergy status; Z79.4 Long term (current) use of insulin; Z79.899 Other long term (current) drug therapy
CPT/HCPCS: 0042T; 36415; 36416; 51701; 70450; 70496; 70498; 71045; 80048; 80053; 80306; 81003; 81025; 82553; 83036; 83605; 83930; 84146; 84484; 85025; 90471; 90732; 93005; 93010; 93306; 94760; 95816; 95819; 96360; 96361; 96374; A4353; G0009; G8978-GP-CJ; G8979-GP-CI; G8987-GO-CJ; G8988-GO-CH; J1650; J1815; J2250; J2310; J3010; J7500

== ENCOUNTER 2018-06-19 22:50 | Inpatient (IN) | payer SELFPAY ==
[2018-06-19] MEDS ORDERED: Lidocaine 1% (PF) 30 ML VIAL ONE (23:57)
[2018-06-20] MEDS ORDERED: Piperacillin/Tazobactam 3.375 GM VIAL ONE (01:20)
[2018-06-20] MEDS ORDERED: Ondansetron ODT 4 MG TAB PO PRN (01:25)
[2018-06-20] MEDS ORDERED: Bisacodyl 5 MG TAB PO PRN (01:39)
[2018-06-20] MEDS ORDERED: Dextrose 5% in Water 1,000 ML IV PRN (01:40)
[2018-06-20] MEDS ORDERED: Dextrose 50% Abboject 50 ML SYRINGE SLOW IVP PRN (01:40)
[2018-06-20] MEDS ORDERED: VANCOMYCIN/ ZOSYN IVPB PRN (01:42)
[2018-06-20] MEDS ORDERED: Acetaminophen 325 MG TAB ONE (02:15)
[2018-06-20] MEDS: Sodium Chloride 0.9% 1,000 ML IV SCH ×3 (03:16→15:15)
[2018-06-20 03:31] VITALS: BMI 47.8
[2018-06-20] MEDS ORDERED: Morphine 2 MG/ML SYRINGE SLOW IVP SCH (03:45)
[2018-06-20] MEDS: Levothyroxine Sodium 25 MCG TAB PO SCH (05:56)
[2018-06-20] MEDS: traMADol HCl 50 MG TAB PO SCH ×3 (05:56→21:24)
[2018-06-20 06:17] LABS: #Lymphocytes 1.9 thou/uL (1.20-3.40); #Monocytes 0.9 thou/uL (0.11-0.59); #Neutrophils 12.7 thou/uL (1.40-6.50); %Basophils 0.1 % (0.0-1.0); %Eosinophils 0.3 % (0.0-10.0); %Monocytes 5.8 % (0.0-10.0); %Neutrophils 81.9 % (42.0-75.0); Hemoglobin 10.2 g/dL (12.0-16.0); Mean Corpuscular HGB CONC 31.1 g/dL (32.0-36.0); Mean Corpuscular Hemoglobin 24.5 pg (27.0-31.0); Mean Corpuscular Volume 78.9 fL (78.0-98.0); Mean Platelet Volume 6.2 fL (7.4-10.4); Platelet Count 276 thou/uL (130-400); RBC Distribution Width 14.7 % (11.5-14.5); Red Blood Cell (RBC) Count 4.16 mill/uL (4.20-5.40); White Blood Cell (WBC) Count 15.5 thou/uL (4.8-10.8)
[2018-06-20 06:29] LABS: ALT (SGPT) 13 U/L (8-55); AST (SGOT) 15 U/L (5-34); Albumin 2.9 g/dL (3.5-5.0); Alkaline Phosphatase 163 U/L (40-150); Anion Gap 10 mmol/L (10-20); BUN (Urea Nitrogen) 10 mg/dL (9.8-20.1); Bilirubin, Total 0.7 mg/dL (0.2-1.2); Calc. Creatinine Clearance 159 mL/min (70-130); Calcium 8.1 mg/dL (7.8-10.44); Carbon Dioxide 24 mmol/L (22-29); Chloride 103 mmol/L (98-107); Estimated GFR-MDRD Greater than 90; Globulin 3.5 g/dL (2.4-3.5); Glucose 269 mg/dL (70-105); Protein, Total 6.4 g/dL (6.0-8.3); Sodium 133 mmol/L (136-145)
[2018-06-20] MEDS: HumaLOG 300 UNITS/3 ML VIAL SC PRN ×4 (06:33→21:25)
--- NOTE | 2018-06-20 08:30 | ULT ---
ULTRASOUND SOFT TISSUE TRUNK OR ABSCESS: HISTORY: Pain. COMPARISON: None. FINDINGS: Real-time timmons scale and color evaluation of the labia was performed. There is extensive soft tissue edema and inflammation as well as skin thickening of the left labia. There is a phlegmonous collect ion of fluid which is not drainable. IMPRESSION: Findings suggestive of cellulitis and phlegmonous fluid collection in the left labia. Follow up recom mended. If this does not improve with antibiotic therapy, MRI with contrast recommended. POS: CET
--- NOTE | 2018-06-20 08:55 | HP ---
CHIEF COMPLAINT: Nausea, vomiting, diarrhea, and abscess at vulvar. HISTORY OF PRESENT ILLNESS: This is a 53-year-old female with past medical history of obesity, type 2 diabetes, hypertension, chronic back pain, sarcoidosis, pulmonary lung disease such as asthma and c hronic bronchitis, presenting with nausea, vomiting, diarrhea which started 3 days prior to the day o f admission. The patient went to [facility] [place] [facility] and the patient was transferred to our ED for admission f or sepsis. At this point, the patient is stating that she has history of diarrhea which was ongoing for 3 days, then after diarrhea, the patient started having abdominal pain and the patient had nausea , vomiting as well and eventually the patient started having generalized weakness. In addition to th e patient's pain, the patient also states that she has a new onset of abscess at the vulvar around th e vaginal region and the patient denies any headaches, fever, chills, chest pain, palpitations. REVIEW OF SYSTEMS: Positive for generalized malaise, dry cough, abdominal pain, diarrhea, nausea, vo miting. PAST MEDICAL HISTORY: Type 2 diabetes mellitus, hypertension, chronic back pain, sarcoidosis, asthma , chronic bronchitis. FAMILY HISTORY: Reviewed and noncontributory to this visit. PAST SURGICAL HISTORY: Cholecystectomy, tubal ligation. PSYCHIATRIC HISTORY: Anxiety, bipolar, depression. SOCIAL HISTORY: The patient denies any illicit drug use, any alcohol use or tobacco use. The patien t lives at home with her . ALLERGIES: Patient is allergic to LATEX. CURRENT MEDICATIONS: The patient is on metformin 1000, lisinopril, NovoLog 40 units, tramadol, levot hyroxine, hydrochlorothiazide, promethazine, Hydrocodone Bitartrate, albuterol. PHYSICAL EXAMINATION: VITAL SIGNS: Blood pressure 107/77, pulse is 130, respiratory rate of 16, temperature of 98.8, pain scale of 8, oxygen saturation of 95% on room air. HEENT: Normocephalic, atraumatic. Pupils are equally round and reactive to light. Extraocular move ments are intact. No scleral icterus. GENERAL APPEARANCE: Patient is lying in bed comfortably, does not appear to be in any distress. The patient is speaking in full sentences. NECK: Trachea is midline. No JVD, no tracheal deviation. Full range of motion. RESPIRATORY: Lungs are clear to auscultation bilaterally. No wheezing, no rales, no rhonchi is appr eciated. CARDIOVASCULAR: Positive S1, S2, regular rate and rhythm. No murmurs, no gallops, no rubs appreciat ed. ABDOMEN: Tenderness to palpation at right lower quadrant, and left lower quadrant bilaterally. No p eritoneal signs. Positive bowel sounds in all quadrants. GENITOURINARY: The patient did have left labia majora erythema with swelling and abscess at the vulv ar of the vagina. EXTREMITIES: The patient has 5/5 upper extremity strength and 5/5 lower extremity strength, good pul ses at the upper extremity and lower extremities bilaterally. NEUROLOGIC: Cranial nerves II through XII grossly intact. No neurological deficits noted. SKIN: See the above description for the genitourinary. PSYCHIATRIC: Normal affect. Alert and oriented x3. ED COURSE: The patient received Tylenol, sodium chloride, Zosyn. LABORATORY DATA: WBC 15.5, hemoglobin is 10.2, hematocrit is 32.8, platelet count is 276. Chemistry : Sodium 133, potassium is 4.0, chloride 103, carbon dioxide of 24, anion gap of 10, BUN is 10, crea tinine 0.76, GFR greater than 90, glucose of 269. AST is 15, ALT is 13, alkaline phosphatase is 163. ASSESSMENT AND PLAN: This is a 53-year-old female being admitted for sepsis likely due to gastroente ritis. The patient also have labia majora/left vulvar abscess. At this point, we will start the pat ient on vancomycin and Zosyn. We will continue these medications. We will consult her on Surgical O B per OB. The patient's abscess should not be drained. We should continue antibiotics and if the pa tient does not get better in 48 hours, we are going to evaluate the patient and they will give us the ir recommendations. We will continue the patient on supportive care. 1. Sepsis secondary to gastroenteritis. We will continue the patient on IV hydration. We will make patient n.p.o. except for medications and sips of water. If the patient is able to tolerate diet, maria r vizcarra will start the patient on heart healthy diet with low carbohydrates. 2. History of diabetes mellitus type 2. We will continue the patient on her home medication. We wi ll do Insulin sliding scale. 3. History of hypertension. We will monitor the patient's blood pressure closely and we will start the patient on blood pressure medications as needed. 4. Chronic cough. The patient has a history of asthma and chronic bronchitis. We will just monitor the patient's symptoms at this time and we will start guaifenesin if patient continued to cough. 5. Deep venous thrombosis and gastrointestinal prophylaxis.
[2018-06-20] MEDS ORDERED: Famotidine/PF 20 mg/2ml Vial SLOW IVP SCH (09:00)
[2018-06-20] MEDS: Piperacillin/Tazobactam 3.375 GM in Sodium Chloride 0.9% 100 ML IVPB SCH ×3 (10:01→21:24)
[2018-06-20] MEDS: Amlodipine 5 MG TAB PO SCH (10:02)
[2018-06-20] MEDS: azaTHIOprine 50 MG TAB PO SCH (10:02)
[2018-06-20] MEDS: Atorvastatin Calcium 10 MG TAB PO SCH (10:03)
[2018-06-20] MEDS: Enoxaparin Sodium 40 MG/0.4 ML SYRINGE SC SCH (10:03)
[2018-06-20] MEDS: Acetaminophen 325 MG TAB PO PRN ×2 (10:04→21:25)
[2018-06-20] MEDS: Vancomycin HCl 1.75 GM in Sodium Chloride 0.9% 500 ML IVPB SCH (17:20)
[2018-06-20] MEDS: Nortriptyline HCl 25 MG CAP PO SCH (21:25)
[2018-06-20] MEDS: Famotidine 20 MG TAB PO SCH (21:25)
[2018-06-20] MEDS ORDERED: Labetalol HCl 100 MG/20 ML VIAL SLOW IVP SCH (23:00)
[2018-06-21] MEDS ORDERED: Labetalol HCl 100 MG/20 ML VIAL SLOW IVP PRN (00:15)
[2018-06-21] MEDS: Piperacillin/Tazobactam 3.375 GM in Sodium Chloride 0.9% 100 ML IVPB SCH ×4 (02:40→20:29)
[2018-06-21] MEDS: Vancomycin HCl 1.75 GM in Sodium Chloride 0.9% 500 ML IVPB SCH ×2 (04:56→16:14)
[2018-06-21] MEDS: traMADol HCl 50 MG TAB PO SCH ×3 (06:24→21:22)
[2018-06-21] MEDS: Levothyroxine Sodium 25 MCG TAB PO SCH (06:24)
[2018-06-21] MEDS: HumaLOG 300 UNITS/3 ML VIAL SC PRN ×3 (06:24→16:17)
[2018-06-21] MEDS ORDERED: PROVENTIL INHALER 6.7 G (200 INHALATIONS) INH PRN (08:45)
[2018-06-21] MEDS ORDERED: traMADol HCl 50 MG TAB PO PRN (08:45)
[2018-06-21] MEDS: Sodium Chloride 0.9% 1,000 ML IV SCH ×2 (09:18→17:38)
[2018-06-21] MEDS: Atorvastatin Calcium 10 MG TAB PO SCH (09:19)
[2018-06-21] MEDS: Amlodipine 5 MG TAB PO SCH (09:19)
[2018-06-21] MEDS: Famotidine 20 MG TAB PO SCH ×2 (09:19→20:29)
[2018-06-21] MEDS: azaTHIOprine 50 MG TAB PO SCH (09:19)
[2018-06-21] MEDS: Enoxaparin Sodium 40 MG/0.4 ML SYRINGE SC SCH (09:20)
[2018-06-21] MEDS: HumaLOG 300 UNITS/3 ML VIAL SC SCH ×2 (09:21→20:30)
[2018-06-21 10:46] LABS: #Eosinphils 0.1 thou/uL (0.0-0.7); #Lymphocytes 1.7 thou/uL (1.20-3.40); #Monocytes 0.5 thou/uL (0.11-0.59); #Neutrophils 13.9 thou/uL (1.40-6.50); %Basophils 0.2 % (0.0-1.0); %Eosinophils 0.4 % (0.0-10.0); %Lymphocytes 10.6 % (21.0-51.0); %Neutrophils 85.8 % (42.0-75.0); Hemoglobin 9.9 g/dL (12.0-16.0); Mean Corpuscular Hemoglobin 24.6 pg (27.0-31.0); Mean Corpuscular Volume 79.5 fL (78.0-98.0); Mean Platelet Volume 6.1 fL (7.4-10.4); Platelet Count 283 thou/uL (130-400); RBC Distribution Width 14.8 % (11.5-14.5); Red Blood Cell (RBC) Count 4.02 mill/uL (4.20-5.40); White Blood Cell (WBC) Count 16.2 thou/uL (4.8-10.8)
--- NOTE | 2018-06-21 10:49 | PDOC.PN ---
- Subjective Encounter Start Date: 06/21/18 Encounter Start Time: 08:30 -: old records requested/rev pt is tolerating diet well, no diarrhoea today, has labial pain, no fever - Objective Resuscitation Status: Resuscitation Status FULL:Full Resuscitation MAR Reviewed: Yes Vital Signs & Weight: Vital Signs (12 hours) Temp Pulse Resp BP Pulse Ox 06/21/18 07:02 98.8 F 115 H 18 124/74 98 06/21/18 04:00 98.8 F 119 H 22 H 102/63 94 L 06/21/18 00:12 109 H 06/21/18 00:00 98.4 F 19 94 L 06/20/18 23:54 109 H 102/61 Weight Weight 253 lb 1.6 oz I&O: 06/20/18 06/21/18 06/22/18 06:59 06:59 06:59 Intake Total 5655 1620 Output Total 01511 1220 Balance -69566 400 Result Diagrams: 06/21/18 10:24 06/20/18 05:34 Additional Labs: Accuchecks 06/21/18 06/21/18 06/20/18 10:34 05:56 20:57 POC Glucose 358 H 283 H 336 H 06/20/18 06/20/18 06/20/18 20:51 16:04 11:24 POC Glucose 345 H 346 H 390 H 06/20/18 05:39 POC Glucose 281 H Phys Exam - Physical Examination Constitutional: NAD HEENT: PERRLA, moist MMs, sclera anicteric Neck: no JVD, supple Respiratory: no wheezing, no rales, no rhonchi Cardiovascular: RRR, no significant murmur, no rub Gastrointestinal: soft, non-tender, no distention, positive bowel sounds morbid obesity Musculoskeletal: no edema, pulses present Neurological: non-focal, normal sensation, moves all 4 limbs Psychiatric: normal affect, A&O x 3 Skin: no rash, normal turgor Dx/Plan (1) Sepsis Code(s): A41.9 - SEPSIS, UNSPECIFIED ORGANISM Status: Acute (2) Abscess of left genital labia Code(s): N76.4 - ABSCESS OF VULVA Status: Acute (3) Morbid obesity with BMI of 40.0-44.9, adult Code(s): E66.01 - MORBID (SEVERE) OBESITY DUE TO EXCESS CALORIES; Z68.41 - BODY MASS INDEX (BMI) 40.0-44.9, ADULT Status: Chronic (4) Anemia, normocytic normochromic Code(s): D64.9 - ANEMIA, UNSPECIFIED Status: Chronic (5) Asthma Code(s): J45.909 - UNSPECIFIED ASTHMA, UNCOMPLICATED Status: Chronic Comment : stable (6) DM2 (diabetes mellitus, type 2) Status: Chronic Comment: (7) HLD (hyperlipidemia) Code(s): E78.5 - HYPERLIPIDEMIA, UNSPECIFIED Status: Chronic Comment: (8) HTN (hypertension) Code(s): I10 - ESSENTIAL (PRIMARY) HYPERTENSION Status: Chronic Qualifiers: Comment: (9) Sarcoidosis Code(s): D86.9 - SARCOIDOSIS, UNSPECIFIED Status: Chronic Comment: (10) Hypothyroidism Code(s): E03.9 - HYPOTHYROIDISM, UNSPECIFIED Status: Chronic - Plan cont current plan of care, plan discussed w/ family, continue antibiotics * consult [facility] for evaluation for I & D for labial abscess * continue vancomycin and zosyn * control diabetes * start selected home medication * discussed with family * repeat labs tomorrow * medication reviewed as below * symptomatic treatment. Review of Systems - Review of Systems ENT: negative: Ear Pain, Ear Discharge, Nose Pain, Nose Discharge, Nose Congestion, Mouth Pain, Mouth Swelling, Throat Pain, Throat Swelling, Other Respiratory: negative: Cough, Dry, Shortness of Breath, Hemoptysis, SOB with Excertion, Pleuritic Pain, Sputum, Wheezing Cardiovascular: negative: chest pain, palpitations, orthopnea, paroxysmal nocturnal dyspnea, edema, light headedness, other Gastrointestinal: negative: Nausea, Vomiting, Abdominal Pain, Diarrhea, Constipation, Melena, Hematochezia, Other Genitourinary: negative: Dysuria, Frequency, Incontinence, Hematuria, Retention , Other Musculoskeletal: negative: Neck Pain, Shoulder Pain, Arm Pain, Back Pain, Hand Pain, Leg Pain, Foot Pain, Other - Medications/Allergies Allergies/Adverse Reactions: Allergies Allergy/AdvReac Type Severity Reaction Status Date / Time latex AdvReac Verified 12/15/17 15:40 Medications: Current Medications Acetaminophen (Tylenol) 650 mg PO Q4H PRN PRN Reason: Headache/Fever/Mild Pain (1-3) Last Admin: 06/20/18 21:25 Dose: 650 mg Albuterol Sulfate (Proventil Hfa) 2 puff INH Q4H PRN PRN Reason: Wheezing Amlodipine Besylate (Norvasc) 5 mg PO DAILY [facility] Last Admin: 06/21/18 09:19 Dose: 5 mg Aspirin (Aspirin Chewable) 81 mg PO DAILY [facility] Last Admin: 06/21/18 09:19 Dose: 81 mg Atorvastatin Calcium (Lipitor) 10 mg PO DAILY [facility] Last Admin: 06/21/18 09:19 Dose: 10 mg Azathioprine (Imuran) 100 mg PO DAILY [facility] Last Admin: 06/21/18 09:19 Dose: 100 mg Bisacodyl (Dulcolax) 10 mg PO DAILYPRN PRN PRN Reason: Constipation Last Admin: 06/20/18 17:29 Dose: 10 mg Dextrose/Water (Dextrose 50%) 25 gm SLOW IVP PRN PRN PRN Reason: Hypoglycemia Enoxaparin Sodium (Lovenox) 40 mg SC 0900 [facility] Last Admin: 06/21/18 09:20 Dose: 40 mg Famotidine (Pepcid) 20 mg PO Q12HR [facility] Last Admin: 06/21/18 09:19 Dose: 20 mg Glucagon (Glucagon) 1 mg IM PRN PRN PRN Reason: Hypoglycemia Sodium Chloride (Normal Saline 0.9%) 1,000 mls @ 100 mls/hr IV .Q10H [facility] Last Admin: 06/21/18 09:18 Dose: Not Given Dextrose/Water (D5w) 1,000 mls @ 0 mls/hr IV .Q0M PRN PRN Reason: Hypoglycemia Piperacillin Sod/Tazobactam (Sod 3.375 gm/ Sodium Chloride) 100 mls @ 200 mls/ hr IVPB 0200,0800,1400,2000 [facility] Last Admin: 06/21/18 09:18 Dose: 100 mls Vancomycin HCl 1.75 gm/ Sodium (Chloride) 500 mls @ 250 mls/hr IVPB 0400,1600 [facility] Last Admin: 06/21/18 04:56 Dose: 500 mls Insulin Human Lispro (Humalog) 0 units SC .MILD SLIDING SCALE PRN PRN Reason: Mild Correctional Scale Last Admin: 06/21/18 06:24 Dose: 4 unit Insulin Human Lispro (Humalog) 40 units SC BID [facility] Last Admin: 06/21/18 09:21 Dose: 40 unit Insulin Human NPH (Humulin N) 40 unit SC BID[facility] Labetalol HCl (Normodyne) 5 mg SLOW IVP Q4H PRN PRN Reason: SBP > 180 Levothyroxine Sodium (Synthroid) 25 mcg PO 0600 [facility] Last Admin: 06/21/18 06:24 Dose: 25 mcg Miscellaneous Medication (Pharmacy To Dose) 1 each IVPB PRN PRN PRN Reason: Pharmacy to dose Nortriptyline HCl (Pamelor) 25 mg PO HS [facility] Last Admin: 06/20/18 21:25 Dose: 25 mg Nortriptyline HCl (Pamelor) 25 mg PO [facility] Ondansetron HCl (Zofran Odt) 4 mg PO Q6H PRN PRN Reason: Nausea/Vomiting Ondansetron HCl (Zofran) 4 mg IVP Q6H PRN PRN Reason: Nausea/Vomiting Sodium Chloride (Flush - Normal Saline) 10 ml IVF Q12HR PRN PRN Reason: Saline Flush Sodium Chloride (Flush - Normal Saline) 10 ml IVF PRN PRN PRN Reason: Saline Flush Tramadol HCl (Ultram) 50 mg PO Q8HR [facility] Last Admin: 06/21/18 06:24 Dose: 50 mg Tramadol HCl (Ultram) 50 mg PO Q8H PRN PRN Reason: Pain
[2018-06-21 10:54] LABS: Hemoglobin A1c 12.2 % (4.0-6.0)
--- NOTE | 2018-06-21 10:59 | CON ---
DATE OF CONSULTATION: 06/21/2018 REQUESTING PHYSICIAN FOR GYNECOLOGY CONSULT: Dr. Trujillo with Internal Medicine REASON FOR EVALUATION: Left vulvar abscess for examination. HISTORY OF PRESENT ILLNESS: In brief, this is a 53-year-old -Faroese patient who was admitte d from the [place] ER here to [place] for suspected early sepsis. She has been admitted to [facility]. The patient has been started on IV vancomycin as well as Zosyn. Initial white blood kingsley l count on arrival was 15, she is also receiving maintenance IV fluids. I have evaluated the patient at 10:15 up until 10:30 in [id number] as the consult was received at approximately 10:00 in the morning In brief, the patient states that she was brought to this area for a history of persistent nausea, vo miting, and some diarrhea. She also had this vulvar swelling for the last 3 days. On questioning, s he states that she had an axillary (underarm) similar "boil" about the year 1999. These spontaneousl y drained. She does not have multiple episodes, nor did she have any skin changes. She states that her discomfort is mainly with walking and sitting in this vulvar area. Since admission, the patient has undergone a soft tissue labial ultrasound which revealed "phlegmonou s collection of fluid that is not drainable." This was taken on 06/20/2018 just after midnight. PAST MEDICAL HISTORY: Patient has a history of insulin-dependent diabetes, chronic hypertension, chr onic pulmonary disease, asthma, anxiety, and bipolar syndrome. PAST SURGICAL HISTORY: Cholecystectomy and a prior tubal ligation. CURRENT MEDICATIONS: Include insulin, lisinopril, hydrochlorothiazide, Zosyn, vancomycin, albuterol p.r.n. She also has pain medication p.r.n. She is also on Lovenox 40 mg for prophylaxis of DVT. PHYSICAL EXAMINATION: We evaluated the patient at bedside and there is some induration to the patien t's left labia, but there is no area of fluctuance. There is also no palpable crepitus. There is no mass distortion or sinus tract formation. We also examined the patient's axilla bilaterally and the re is no evidence of skin fistulous tract or scarring. ASSESSMENT: This is a 53-year-old -Faroese female with multiple medical comorbidities and a left labial abscess likely originating from hyperglycemia and obesity causing labial dependent edema. There is no evidence of hidradenitis suppurativa on physical exam or by history. PLAN: 1. We will notify Dr. Trujillo of her findings. 2. We will recommend continued IV antibiotics (dual antibiotics) for now until the patient is clinic ally better. I have also put in a repeat CBC to track white blood cell count. I have also ordered a hemoglobin A1c to see what her glycemic control has been over the last 3 months. Here in the hospit al, her blood sugars have ranged from the high 200s-300s. 3. After the patient is symptomatically better, after a minimum of at least 72 hours of IV antibioti cs, the patient needs to be discharged home on Augmentin with or without Bactrim for an additional da ys of coverage until 14 days of total antibiotics. 4. There is no area to drain on physical exam and the ultrasound shows that this is an organized abs cess/phlegmon making incision and drainage of limited value. 5. Nothing to suspect methicillin-resistant Staphylococcus aureus by history, but the vancomycin jordan l cover that if that is an issue. 6. No acute need for intervention or drainage at this time. 7. The patient is seen at bedside along with Dr. Sher with Family Medicine.
--- NOTE | 2018-06-21 12:58 | PDOC.EVN ---
Event Note - Event Note Event Note: Lab check from this AM: CBC with WBC 16; Hbaic= 12.2 I have ordered repat CBC for AM run
[2018-06-21 15:22] LABS: Vancomycin, Trough 15.1 ug/mL
[2018-06-21] MEDS: Ondansetron HCl/PF 4 MG/2 ML Vial IVP PRN (16:14)
[2018-06-21] MEDS: Acetaminophen 325 MG TAB PO PRN (17:35)
[2018-06-21] MEDS: NPH, Human Insulin Isophane 300 UNIT/3 ML VIAL SC SCH (17:36)
[2018-06-21] MEDS: Nortriptyline HCl 25 MG CAP PO SCH ×2 (20:30→20:33)
[2018-06-22] MEDS: Piperacillin/Tazobactam 3.375 GM in Sodium Chloride 0.9% 100 ML IVPB SCH ×4 (01:49→19:57)
[2018-06-22] MEDS: Vancomycin HCl 1.75 GM in Sodium Chloride 0.9% 500 ML IVPB SCH ×2 (03:31→18:35)
[2018-06-22] MEDS: Acetaminophen 325 MG TAB PO PRN (03:42)
[2018-06-22] MEDS: Levothyroxine Sodium 25 MCG TAB PO SCH (05:11)
[2018-06-22] MEDS: traMADol HCl 50 MG TAB PO SCH ×3 (05:11→21:41)
[2018-06-22] MEDS: HumaLOG 300 UNITS/3 ML VIAL SC PRN ×2 (05:21→16:16)
[2018-06-22 06:01] LABS: #Basophils 0.1 thou/uL (0.0-0.2); #Eosinphils 0.1 thou/uL (0.0-0.7); #Lymphocytes 1.2 thou/uL (1.20-3.40); #Monocytes 0.9 thou/uL (0.11-0.59); #Neutrophils 13.5 thou/uL (1.40-6.50); %Basophils 0.4 % (0.0-1.0); %Eosinophils 0.7 % (0.0-10.0); %Lymphocytes 7.7 % (21.0-51.0); %Monocytes 5.6 % (0.0-10.0); %Neutrophils 85.7 % (42.0-75.0); Hemoglobin 9.1 g/dL (12.0-16.0); Mean Corpuscular HGB CONC 30.9 g/dL (32.0-36.0); Mean Corpuscular Hemoglobin 24.7 pg (27.0-31.0); Mean Corpuscular Volume 79.9 fL (78.0-98.0); Mean Platelet Volume 6.1 fL (7.4-10.4); Platelet Count 276 thou/uL (130-400); RBC Distribution Width 14.9 % (11.5-14.5); Red Blood Cell (RBC) Count 3.69 mill/uL (4.20-5.40); White Blood Cell (WBC) Count 15.7 thou/uL (4.8-10.8)
[2018-06-22 06:21] LABS: Anion Gap 10 mmol/L (10-20); BUN (Urea Nitrogen) 9 mg/dL (9.8-20.1); Calc. Creatinine Clearance 104 mL/min (70-130); Carbon Dioxide 22 mmol/L (22-29); Chloride 105 mmol/L (98-107); Estimated GFR-MDRD 60; Glucose 332 mg/dL (70-105); Potassium 3.8 mmol/L (3.5-5.1); Sodium 133 mmol/L (136-145)
--- NOTE | 2018-06-22 07:17 | PDOC.EVN ---
Event Note - Event Note Event Note: OBGYN ADMIT DATE: 06/20/18 HD2 Still with some labial discomfort Tmax was 100.9 this AM around 0330 WBC still stable at 15 IV meds= zosyn and vanc Left labial induration/cellulitis with non-drainable (organized) abscess; multiple medical co-morbidities on insulin and lovenox for VTE prophylaxis. Per sono, no drainable area. Continue ABX for now. Unsure if I&D attempt would be helpful at this time. Follow temps and WBCs.
[2018-06-22] MEDS: Sodium Chloride 0.9% 1,000 ML IV SCH ×2 (08:06→16:07)
[2018-06-22] MEDS: Enoxaparin Sodium 40 MG/0.4 ML SYRINGE SC SCH (08:07)
[2018-06-22] MEDS: Saccharomyces boulardii 250 MG CAP PO SCH (08:07)
[2018-06-22] MEDS: azaTHIOprine 50 MG TAB PO SCH (08:07)
[2018-06-22] MEDS: Amlodipine 5 MG TAB PO SCH (08:08)
[2018-06-22] MEDS: Atorvastatin Calcium 10 MG TAB PO SCH (08:08)
[2018-06-22] MEDS: Famotidine 20 MG TAB PO SCH ×2 (08:08→19:59)
[2018-06-22] MEDS: NPH, Human Insulin Isophane 300 UNIT/3 ML VIAL SC SCH ×2 (08:09→18:28)
--- NOTE | 2018-06-22 08:18 | PDOC.EVN ---
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 Our plan is to follow clinically for now with CBC and temp checks. If slow response to meds, we will obtain a follow up soft tissue/sbcess sono of left labia to see if new area present which may be drainable
[2018-06-22] MEDS: HumaLOG 300 UNITS/3 ML VIAL SC SCH ×2 (10:09→21:41)
--- NOTE | 2018-06-22 11:49 | PDOC.PN ---
- Subjective Encounter Start Date: 06/22/18 Encounter Start Time: 11:47 Subjective: still has pain in genital area, no change in fever, chills - Objective Resuscitation Status: Resuscitation Status FULL:Full Resuscitation Vital Signs & Weight: Vital Signs (12 hours) Temp Pulse Resp BP BP Pulse Ox 06/22/18 08:08 108 H 125/82 06/22/18 07:31 98.1 F 108 H 16 125/82 93 L 06/22/18 03:35 100.9 F H 120 H 18 130/60 93 L 06/22/18 00:13 98.6 F 115 H 18 162/86 H 95 Weight Weight 253 lb 1.6 oz I&O: 06/21/18 06/22/18 06/23/18 06:59 06:59 06:59 Intake Total 5655 7720 Output Total 38215 5720 Balance -1999 Result Diagrams: 06/22/18 05:41 06/22/18 05:41 Additional Labs: Accuchecks 06/22/18 06/22/18 06/21/18 10:24 05:21 20:32 POC Glucose 342 H 306 H 340 H 06/21/18 06/21/18 17:31 15:38 POC Glucose 265 H 248 H Phys Exam - Physical Examination Neck: no JVD Respiratory: clear to auscultation bilateral Cardiovascular: RRR, no significant murmur Gastrointestinal: soft, non-tender, positive bowel sounds Musculoskeletal: edema present Dx/Plan (1) Abscess of left genital labia Code(s): N76.4 - ABSCESS OF VULVA Status: Acute (2) Sepsis Code(s): A41.9 - SEPSIS, UNSPECIFIED ORGANISM Status: Acute Qualifiers: Sepsis type: sepsis due to unspecified organism Qualified Code(s): A41.9 - Sepsis, unspecified organism (3) Asthma Code(s): J45.909 - UNSPECIFIED ASTHMA, UNCOMPLICATED Status: Chronic Qualifiers: Asthma severity: mild Asthma complication type: unspecified Comment: stable (4) DM2 (diabetes mellitus, type 2) Status: Chronic Qualifiers: 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 insulin use: with mcfp use Diabetes mellitus complication status: with skin complications Diabetes mellitus complication detail: with other skin complication Qualified Code(s): E11.628 - Type 2 diabetes mellitus with other skin complications; 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 Comment: (5) HLD (hyperlipidemia) Code(s): E78.5 - HYPERLIPIDEMIA, UNSPECIFIED Status: Chronic Qualifiers: Hyperlipidemia type: unspecified Qualified Code(s): E78.5 - Hyperlipidemia , unspecified Comment: (6) HTN (hypertension) Code(s): I10 - ESSENTIAL (PRIMARY) HYPERTENSION Status: Chronic Qualifiers: Hypertension type: essential hypertension Comment: (7) Hypothyroidism Code(s): E03.9 - HYPOTHYROIDISM, UNSPECIFIED Status: Chronic (8) Morbid obesity with BMI of 40.0-44.9, adult Code(s): E66.01 - MORBID (SEVERE) OBESITY DUE TO EXCESS CALORIES; Z68.41 - BODY MASS INDEX (BMI) 40.0-44.9, ADULT Status: Chronic (9) Sarcoidosis Code(s): D86.9 - SARCOIDOSIS, UNSPECIFIED Status: Chronic Comment: - Plan cont iv antibx, discuss with OPHTHALMIC NURSE -: cont accu/ss/ LA insulin -: MRI of genital area * .
[2018-06-22 15:23] LABS: Vancomycin, Trough 26.5 ug/mL
[2018-06-22] MEDS: Ondansetron HCl/PF 4 MG/2 ML Vial IVP PRN (16:12)
[2018-06-22] MEDS ORDERED: Lidocaine 1% (PF) 30 ML VIAL ONE (18:07)
[2018-06-22] MEDS ORDERED: Lidocaine 1% (PF) 30 ML VIAL FS SCH (18:15)
[2018-06-22] MEDS: Nortriptyline HCl 25 MG CAP PO SCH ×2 (19:59→20:00)
--- NOTE | 2018-06-22 22:26 | PDOC.EVN ---
Event Note - Event Note Event Note: 06/22/2018 at appx 18:00 PRE-OP DIAGNOSIS: Left labial abscess POST-OP DIAGNOSIS: Same PROCEDURE: Incision and drainage of abscess Performing Physician: Harsha PROCEDURE: A timeout protocol was performed prior to initiating the procedure. The area was prepared and draped in the usual, sterile manner. The site was anesthetized with 1% lidocaine. A linear incision along the local skin lines was made and the purulent/sanguineous material expressed. The abcess was explored thoroughly and sequestered pockets were opened. Bleeding was minimal. Packing was performed using 1/4 inch iodoform gauze. Followup: The patient tolerated the procedure well without complications. Standard post-procedure care was explained. Recommend tight glycemic control for optimal healing. Continue vanc and zosyn IV. Orly Mcleod, DO PGY-2
[2018-06-23] MEDS: Sodium Chloride 0.9% 1,000 ML IV SCH ×3 (01:05→21:25)
[2018-06-23] MEDS: Piperacillin/Tazobactam 3.375 GM in Sodium Chloride 0.9% 100 ML IVPB SCH ×4 (01:07→20:24)
[2018-06-23] MEDS: Vancomycin HCl 1.25 GM in Sodium Chloride 0.9% 250 ML 250 ML IVPB SCH ×2 (03:52→16:58)
[2018-06-23] MEDS: traMADol HCl 50 MG TAB PO SCH ×3 (05:38→21:32)
[2018-06-23] MEDS: Levothyroxine Sodium 25 MCG TAB PO SCH (05:39)
[2018-06-23 05:57] LABS: Hemoglobin 8.9 g/dL (12.0-16.0); Mean Corpuscular HGB CONC 31.2 g/dL (32.0-36.0); Mean Corpuscular Hemoglobin 24.8 pg (27.0-31.0); Mean Corpuscular Volume 79.7 fL (78.0-98.0); Platelet Count 315 thou/uL (130-400); Red Blood Cell (RBC) Count 3.56 mill/uL (4.20-5.40); White Blood Cell (WBC) Count 15.5 thou/uL (4.8-10.8)
--- NOTE | 2018-06-23 07:20 | CON ---
DATE OF CONSULTATION: 06/22/2018 PRIMARY CERAMIST: Wong Hayes MD REFERRING PHYSICIAN: Ranulfo Mantilla DO REASON FOR CARDIOLOGY CONSULT: Tachycardia. HISTORY OF PRESENT ILLNESS: Ms. Neff is a 53-year-old -[place] female with a significant h istory of sarcoidosis, type 2 diabetes, hypertension, asthma, chronic bronchitis, and multiple histor y of syncopal episode status post LINQ placement. The patient reports that she was sick for 3 weeks with continuing diarrhea, cough, nausea, vomiting, nodule to the right hip, tumor in abdomen, and int ermittent dizziness when she get up very quick. She has been not eating well for at least a couple w eeks due to diarrhea and nausea, vomiting right after she eats or has some oral intake. The family hetal jane also noticed the patient has cough with phlegm with red streak of blood. The patient denies an y chest pain, discomfort, palpitation or fluttering in her chest during those episodes. At this mome nt, she continues to have mild general discomfort all over her body; however, the patient's condition is stable per family member. The patient also reported that her blood sugar has been really high up to 592 lately, and the patient's blood glucose tend to be around 100 in a.m. and more than like high 500s sometime in the afternoon. Also, the patient's family member noticed that she had been very sl eepy; and even during the conversation, she is easy to doze off in the last 1-2 months. During this initial cardiology consult, she dozed off several times during the interview. The patient had an echocardiogram done in 12/2017 with EF 60%-65%, trace tricuspid regurgitation. Th e patient's stress test was done in 04/2017, which showed normal post-stress myocardial perfusion sca n. A carotid Doppler was done in 06/2016 with no significant stenosis in the bilateral carotid arter ies. Ultrasound to the genital area revealed cellulitis and phlegmonous fluid collection in the left labia, and the patient is going to have an MRI with contrast today. PAST MEDICAL HISTORY: 1. Sarcoidosis, which is affecting the patient's neurological sarcoid and swallowing dysfunction. 2. Type 2 diabetes. 3. 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 4. Hypertension. 5. Hyperlipidemia. 6. Chronic back pain. 7. Asthma. 8. Chronic bronchitis. 9. History of syncopal episode, status post LINQ placement. PAST SURGICAL HISTORY: 1. Cholecystectomy. 2. Foot surgery. 3. Tubal ligation. 4. Cancer removed from the chest in the sternal area with a biopsy in 2011. 5. LINQ placement. FAMILY HISTORY: The patient's mother has a medical history of diabetes and congestive heart failure. Otherwise, there are no significant cardiac-related medical history in her family. SOCIAL HISTORY: The patient is , living with her . They have 3 children. Two of thei r children has disease, which is white blood cell aiding red blood cell, possibly talking about sickl e cell disease, but they cannot remember. The patient is an ex-smoker, quit in 2015. The patient en joys occasional alcohol at the holiday time. The patient denies any illicit drug abuse. ALLERGIES: She is allergic to LATEX. HOME MEDICATIONS: Regular insulin as needed, nortriptyline 25 mg at night, Lipitor 10 mg once a day, albuterol 2 puffs as needed, amlodipine 5 mg once a day, levothyroxine 25 mcg once a day, aspirin 81 mg once a day, tramadol 50 mg every 8 hours, Imuran 100 mg daily, Dulcolax, and Humulin 40 units twi ce a day. REVIEW OF SYSTEMS: The patient's review of system is negative unless otherwise mentioned in the HPI. The patient denied any blood in the stool or urine. Prior to this event, the patient could keep up with her housework. The patient denied constipation or diarrhea. PHYSICAL EXAMINATION: VITAL SIGNS: Blood pressure 119/78, pulse is 106, respiratory rate of 12, O2 sat 95% on room air, te mperature 97.9. GENERAL: The patient is alert, oriented x4, easy to doze off. The patient is morbidly obese. HEAD: Normocephalic, atraumatic. EYES: Extraocular muscle movement intact. ENT AND MOUTH: Oral and nasal mucosa are moist without lesion. NECK: No JVD. Normal range of motion. Carotid pulses are present without bruits or thrill. RESPIRATORY: Lungs, clear to auscultation bilaterally. No wheezes, rales, or rhonchi noted. CARDIOVASCULAR: irregular. Normal S1, S2. No S3 or S4. No murmur, hives, or gallops noted. 2+ pulses in bilateral lower extremities. No cyanosis or edema noticed. ABDOMEN: Positive bowel sounds. The patient refused to palpation of hard stomach due to the tumor i n the stomach. MUSCULOSKELETAL: The patient is able to move all extremities. SKIN: Warm and dry. to the left labia and the genital area. NEUROLOGIC: The patient is alert, oriented x4, nonfocal. PSYCHIATRIC: Normal affect. IMAGIN-lead EKG was done at the ER on 06/19/2018, sinus rhythm with heart rate 134. She has no t had any 12-lead EKG since then. LABORATORY DATA: WBC 15.7, hemoglobin 9.1, hematocrit 29.5, platelet 276. Sodium of 133, potassium of 3.8, BUN 9, creatinine 116, glucose 332. C-reactive protein 19.10. TSH is 1.397. Hemoglobin A1c is 12.2. ASSESSMENT AND PLAN: 1. Tachycardia. The patient's heart rate has been 100 today, which is the patient's baseline. We w ould like to continue current medication or we might like to start Bystolic and adjust patient's othe r medicine for the patient's tachycardia. However, we have to be caution to even start Bystolic beta zaid due to the history of asthma. 2. Sepsis secondary to abscess to the left labia, which is managed by primary care doctor. The [facility] ent is supposed to have an MRI today and SCC[facility] ADMINISTRATOR doctor has already consulted this patient 3. Hypertension. The patient's blood pressure has been well controlled by current medication. 4. Diabetes. The patient's blood sugar has been more than 200 since this admission with hemoglobin A1c of more than 12, which is managed by primary care doctor. 5. History of sarcoidosis, which is managed by primary care doctor. 6. Obese. Weight management education given to the patient and the patient's family. 7. Anemia. The patient's blood count is gradually decreasing. We would like to continue to monitor at this moment. Thank you very much for allowing the Cardiology Service to participate in care of this patient. We w ill follow along with the Patient Care Team and make further recommendation as appropriate. From matti bob, Dr. Hayes will follow this patient.
--- NOTE | 2018-06-23 07:21 | CON ---
ADDENDUM DATE OF CONSULTATION: 06/22/2018 Please refer to the chart dictated by the Nurse Practitioner Winter Ann. DATE OF ADMISSION: 06/20/2018 INDICATION FOR CONSULTATION: A 53-year-old female with tachycardia. The notes already dictated, Humphrey rutledge agree with the assessment and plan. HISTORY OF PRESENT ILLNESS: She is a 53-year-old female with a history of congestive heart failure, has been followed by Dr. Hayes in the past. She, at this time was admitted due to abscesses in the perineal area or in the vaginal area. She has a vulvar abscess and she has had some significant pain . She does have most likely this is the etiology of the tachycardia. She does have a history of thai betes; however, and chronic hypertension. She also has chronic COPD, asthma, and bipolar syndrome. She denies any chest pain. She does have some shortness of breath when she exerts herself or when sh e moves around too quickly, but otherwise she appears to be relatively stable with her congestive hea rt failure. Her EKG showed a sinus tachycardia, but no acute EKG changes to indicate ischemia. No i ndication of previous myocardial infarction. She did have a small Q-wave in lead II, but does not co rrelate with the leads in 3 and aVF and does not imply an inferior myocardial infarction. At this ti me, she is stable and does not have any significant complaints except for the vulvar abscess discomfo rt. PHYSICAL EXAMINATION: GENERAL: Reveals a well-developed, well-nourished female, morbidly obese. VITAL SIGNS: Her blood pressure is elevated earlier was 119/78 and then increased up to 182/109, her heart rate is 106 to 112 and shows sinus tachycardia. She is afebrile, respiratory rate 12 to 16. HEENT: Head to be normocephalic and atraumatic. CHEST: Clear to auscultation without rales, rhonchi or wheezing. CARDIOVASCULAR: Exam reveals a regular rhythm, somewhat tachycardic. I did not hear any gross murmu rs, heaves, thrills, bruits or rubs. ABDOMEN: Shows morbid obesity. One cannot evaluate for any palpable masses. I did not evaluate the vulva area. Please refer to the notes already dictated. SKIN: Warm and dry. She has no significant lower extremity edema. NEUROLOGIC: She appears to be intact. LABORATORY DATA: To include a stress test, her stress test was performed yesterday. There was no ev idence of ischemia. According to the stress test, she did have an ejection fraction of 67%. She has had no significant coronary artery disease that I am aware of in the past. PAST MEDICAL HISTORY: She has a history of sarcoidosis. She has had some history of syncope in the past. IMPRESSION: 1. Vulvar abscess. This is being treated by the medical/surgical team. 2. Pain associated with this which most likely has been causing her to have some tachycardia. 3. Hypertension. When she is in pain, the blood pressure elevates and most of time it has been unde r reasonable control. We will continue her medications. She is on Norvasc in the past, but this has controlled the blood pressure relatively well. 4. History of chronic obstructive pulmonary disease in the form of asthma. This will be dealt also with the primary care service or the Pulmonology Service. She has a normal ejection fraction. 5. Noncompliance. She has not followed up in the office with Dr. Hayes as she was not directed to do. 6. Tachycardia, which is sinus tachycardia, not too concerning at this time due to the pain when she is even at rest, sometimes the heart rate is slightly elevated, which may be due to some underlying chronic obstructive pulmonary disease or due to the pain. She may need to actually add Bystolic for better blood pressure control. If she is able to tolerate this as far as her asthma is concerned sin ce she has a normal ejection fraction, we could try diltiazem; however, with a normal ejection fracti on, chances are it would not be beneficial and the best alternative would be to start her on a low do se of beta blockers to lower the heart rate as well as give some assistance to also lowering the bloo d pressure since her blood pressure was elevated later earlier today and try her on low dose of Bysto lic and see whether or not she tolerates this medication. Further care of the patient will be by Dr. Hayes when he visits with the patient tomorrow.
--- NOTE | 2018-06-23 07:48 | PDOC.EVN ---
Event Note - Event Note Event Note: 06/23/2018 at 7:15 AM Patient resting comfortably upon entering room. She states that her pain was better controlled overnight. Pain is currently 8/10, whereas it was 10/10 previously. She is able to move with less discomfort. General: Resting comfortably. Cardio: Tachycardic. No murmurs. Resp: No acute respiratory distress. 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 Draining sanguineous fluid overnight. Less tender to palpation than on previous exams. No surrounding erythema. Below I&D still firm to palpation, although not causing patient discomfort. A/P: Left labial abscess s/p I&D: - Continue IV Vanc and Zosyn - Keep area clean and dry with packing in place - Continue IV fluids - Patient will need tight glycemic control for optimal healing - Will continue to follow patient during course of her hospital stay Orly Mcleod, DO PGY-2 <Orly Mcleod - Last Filed: 06/23/18 07:43> Attending Addendum - Attending Addendum Date/Time: 06/24/18 0947 I personally evaluated the patient and discussed the management with Dr. Mcleod. I agree with the History, Examination, Assessment and Plan documented above with any addition or exceptions noted below. <Thomas Cheek - Last Filed: 06/24/18 09:47>
[2018-06-23] MEDS: Saccharomyces boulardii 250 MG CAP PO SCH (08:14)
[2018-06-23] MEDS: azaTHIOprine 50 MG TAB PO SCH (08:14)
[2018-06-23] MEDS: Famotidine 20 MG TAB PO SCH ×2 (08:14→20:24)
[2018-06-23] MEDS: Amlodipine 5 MG TAB PO SCH (08:14)
[2018-06-23] MEDS: Atorvastatin Calcium 10 MG TAB PO SCH (08:14)
[2018-06-23] MEDS: Enoxaparin Sodium 40 MG/0.4 ML SYRINGE SC SCH (08:15)
--- NOTE | 2018-06-23 08:18 | PDOC.CTH ---
Cardiology Progress Note - Subjective She is doing better. She had an I&D done yesterday and has not had a fever since. - Objective Vital Signs Temp Pulse Resp BP Pulse Ox 06/23/18 07:51 97.6 F 100 20 129/83 91 L 06/23/18 04:48 97.9 F 111 H 20 132/85 96 06/23/18 00:58 98.2 F 110 H 18 108/65 94 L 06/22/18 20:59 98.9 F 116 H 22 H 148/94 H 96 06/22/18 20:31 96 Weight 253 lb 1.6 oz 06/22/18 06/23/18 06/24/18 06:59 06:59 06:59 Intake Total 7720 Output Total 5720 Balance 1999 - Physical Examination General/Neuro: alert & oriented x3, NAD Neck: no JVD present Lungs: CTA, unlabored respirations Heart: RRR Abdomen: NT/ND Extremities: + edema B (1+) - Labs Result Diagrams: 06/23/18 05:18 06/22/18 05:41 - Assessment/Plan 1. Sinus tachycardia 2. Vulvar abscess. 3. HTN 4. COPD/Asthma PLAN: - Continue abx per [facility]irm[facility] team - Tachycardia likely related to infectious process and pain. - Will get echocardiogram. - No need to add any AV akil blocking agents as sinus tachycardia is likely needed for her current clinical scenario.
[2018-06-23] MEDS: HumaLOG 300 UNITS/3 ML VIAL SC SCH ×2 (09:21→22:50)
[2018-06-23] MEDS: NPH, Human Insulin Isophane 300 UNIT/3 ML VIAL SC SCH ×2 (09:50→17:52)
[2018-06-23] MEDS: Nebivolol HCl 2.5 MG TAB PO SCH (09:50)
--- NOTE | 2018-06-23 11:10 | PDOC.PN ---
- Subjective Encounter Start Date: 06/23/18 Encounter Start Time: 11:08 Subjective: fever, tachycardia - Objective Resuscitation Status: Resuscitation Status FULL:Full Resuscitation MAR Reviewed: Yes Vital Signs & Weight: Vital Signs (12 hours) Temp Pulse Resp BP BP Pulse Ox 06/23/18 08:26 94 L 06/23/18 08:14 100 129/83 06/23/18 08:00 94 L 06/23/18 07:51 97.6 F 100 20 129/83 91 L 06/23/18 04:48 97.9 F 111 H 20 132/85 96 06/23/18 00:58 98.2 F 110 H 18 108/65 94 L Weight Weight 253 lb 1.6 oz I&O: 06/22/18 06/23/18 06/24/18 06:59 06:59 06:59 Intake Total 7720 Output Total 5720 Balance 1999 Result Diagrams: 06/23/18 05:18 06/22/18 05:41 Additional Labs: Accuchecks 06/23/18 06/22/18 06/22/18 06:05 21:28 15:49 POC Glucose 99 189 H 266 H Phys Exam - Physical Examination Neck: no JVD Respiratory: clear to auscultation bilateral Cardiovascular: RRR, no significant murmur Gastrointestinal: soft, positive bowel sounds Musculoskeletal: edema present Dx/Plan (1) Abscess of left genital labia Code(s): N76.4 - ABSCESS OF VULVA Status: Acute (2) Sepsis Code(s): A41.9 - SEPSIS, UNSPECIFIED ORGANISM Status: Acute Qualifiers: Sepsis type: sepsis due to unspecified organism Qualified Code(s): A41.9 - Sepsis, unspecified organism (3) Asthma Code(s): J45.909 - UNSPECIFIED ASTHMA, UNCOMPLICATED Status: Chronic Qualifiers: Asthma severity: mild Asthma complication type: unspecified Comment: stable (4) DM2 (diabetes mellitus, type 2) Status: Chronic Qualifiers: Diabetes mellitus chaperone insulin use: with mcfp use Diabetes mellitus complication status: with skin complications Diabetes mellitus complication detail: with other skin complication Qualified Code(s): E11.628 - Type 2 diabetes mellitus with other skin complications; Z79.4 - talent acquisition partner ( current) use of insulin Comment: (5) HLD (hyperlipidemia) Code(s): E78.5 - HYPERLIPIDEMIA, UNSPECIFIED Status: Chronic Qualifiers: Hyperlipidemia type: unspecified Qualified Code(s): E78.5 - Hyperlipidemia , unspecified Comment: (6) HTN (hypertension) Code(s): I10 - ESSENTIAL (PRIMARY) HYPERTENSION Status: Chronic Qualifiers: Hypertension type: essential hypertension Comment: (7) Hypothyroidism Code(s): E03.9 - HYPOTHYROIDISM, UNSPECIFIED Status: Chronic (8) Morbid obesity with BMI of 40.0-44.9, adult Code(s): E66.01 - MORBID (SEVERE) OBESITY DUE TO EXCESS CALORIES; Z68.41 - BODY MASS INDEX (BMI) 40.0-44.9, ADULT Status: Chronic (9) Sarcoidosis Code(s): D86.9 - SARCOIDOSIS, UNSPECIFIED Status: Chronic Comment: - Plan post I&D, marked symptomatic -: cont iv antibx pending C&S -: BS improving raidly post op. cont to monitor accu/ss/etc * .
[2018-06-23] MEDS: HumaLOG 300 UNITS/3 ML VIAL SC PRN ×2 (12:54→16:58)
[2018-06-23] MEDS: Nortriptyline HCl 25 MG CAP PO SCH ×2 (20:25→21:25)
[2018-06-24] MEDS: Piperacillin/Tazobactam 3.375 GM in Sodium Chloride 0.9% 100 ML IVPB SCH ×4 (01:08→20:13)
[2018-06-24] MEDS: Vancomycin HCl 1.25 GM in Sodium Chloride 0.9% 250 ML 250 ML IVPB SCH ×2 (03:11→16:08)
[2018-06-24] MEDS: Levothyroxine Sodium 25 MCG TAB PO SCH (05:18)
[2018-06-24] MEDS: Sodium Chloride 0.9% 1,000 ML IV SCH ×2 (05:18→16:42)
[2018-06-24] MEDS: traMADol HCl 50 MG TAB PO SCH ×3 (05:18→21:44)
--- NOTE | 2018-06-24 07:41 | PDOC.FM ---
- Subjective Subjective: Patient doing well this AM. No significant overnight events. She states her pain has improved. - Objective MAR Reviewed: Yes Vital Signs & Weight: Vital Signs (12 hours) Temp Pulse Resp BP Pulse Ox 06/24/18 04:00 97.9 F 92 18 125/81 92 L 06/23/18 23:11 98.5 F 94 16 114/77 90 L 06/23/18 20:52 97 06/23/18 20:00 98.4 F 102 H 16 137/92 H 97 Weight Weight 114.804 kg I&O: 06/23/18 06/24/18 06/25/18 06:59 06:59 06:59 Intake Total 3120 Balance 3120 Result Diagrams: 06/23/18 05:18 06/22/18 05:41 EKG Reviewed by me: No Radiology Reviewed by me: Yes Phys Exam - Physical Examination Constitutional: NAD HEENT: moist MMs No acute respiratory distress. Equal rise and fall of chest. Gastrointestinal: soft, non-tender, no distention Musculoskeletal: pulses present Neurological: non-focal Psychiatric: A&O x 3 Deviation from normal: Left labial abscess s/p I&D. No surrounding erythema. Packing in place. -: Induration along length of left labia below abscess. Mildly tender. Dx/Plan (1) Abscess of left genital labia Code(s): N76.4 - ABSCESS OF VULVA Status: Acute (2) DM2 (diabetes mellitus, type 2) Status: Chronic Qualifiers: Diabetes mellitus residential insulin use: with residential use Diabetes mellitus complication status: with skin complications Diabetes mellitus complication detail: with other skin complication Qualified Code(s): E11.628 - Type 2 diabetes mellitus with other skin complications; Z79.4 - nursing home ( current) use of insulin - Plan Plan: 1. Abscess of left labia s/p I&D - No active drainage - No surrounding erythema or fluctuance - Continue IV Vanc and Zosyn - Change out packing this evening - Patient seems to be clinically improving 2. DM type II, uncontrolled - Continue insulin regimen - Recommend tight glycemic control for optimal healing Orly Mcleod, DO PGY-2
--- NOTE | 2018-06-24 08:45 | PDOC.PN ---
- Subjective Encounter Start Date: 06/24/18 Encounter Start Time: 08:44 Subjective: fever resolved, pain much improved - Objective Resuscitation Status: Resuscitation Status FULL:Full Resuscitation MAR Reviewed: Yes Vital Signs & Weight: Vital Signs (12 hours) Temp Pulse Resp BP Pulse Ox 06/24/18 07:30 97.2 F L 90 18 133/89 92 L 06/24/18 04:00 97.9 F 92 18 125/81 92 L 06/23/18 23:11 98.5 F 94 16 114/77 90 L 06/23/18 20:52 97 Weight Weight 253 lb 1.6 oz I&O: 06/23/18 06/24/18 06/25/18 06:59 06:59 06:59 Intake Total 3120 Balance 3120 Result Diagrams: 06/23/18 05:18 06/22/18 05:41 Additional Labs: Accuchecks 06/24/18 06/23/18 06/23/18 06:00 20:53 15:49 POC Glucose 78 136 H 203 H 06/23/18 12:10 POC Glucose 169 H Phys Exam - Physical Examination Neck: no JVD Respiratory: clear to auscultation bilateral Cardiovascular: RRR, no significant murmur Gastrointestinal: soft, non-tender Musculoskeletal: edema present Dx/Plan (1) Abscess of left genital labia Code(s): N76.4 - ABSCESS OF VULVA Status: Acute (2) Sepsis Code(s): A41.9 - SEPSIS, UNSPECIFIED ORGANISM Status: Acute Qualifiers: Sepsis type: sepsis due to unspecified organism Qualified Code(s): A41.9 - Sepsis, unspecified organism (3) Asthma Code(s): J45.909 - UNSPECIFIED ASTHMA, UNCOMPLICATED Status: Chronic Qualifiers: Asthma severity: mild Asthma complication type: unspecified Comment: stable (4) DM2 (diabetes mellitus, type 2) Status: Chronic Qualifiers: Diabetes mellitus detention insulin use: with detention use Diabetes mellitus complication status: with skin complications Diabetes mellitus complication detail: with other skin complication Qualified Code(s): E11.628 - Type 2 diabetes mellitus with other skin complications; Z79.4 - long-term ( current) use of insulin Comment: (5) HLD (hyperlipidemia) Code(s): E78.5 - HYPERLIPIDEMIA, UNSPECIFIED Status: Chronic Qualifiers: Hyperlipidemia type: unspecified Qualified Code(s): E78.5 - Hyperlipidemia , unspecified Comment: (6) HTN (hypertension) Code(s): I10 - ESSENTIAL (PRIMARY) HYPERTENSION Status: Chronic Qualifiers: Hypertension type: essential hypertension Comment: (7) Hypothyroidism Code(s): E03.9 - HYPOTHYROIDISM, UNSPECIFIED Status: Chronic (8) Morbid obesity with BMI of 40.0-44.9, adult Code(s): E66.01 - MORBID (SEVERE) OBESITY DUE TO EXCESS CALORIES; Z68.41 - BODY MASS INDEX (BMI) 40.0-44.9, ADULT Status: Chronic (9) Sarcoidosis Code(s): D86.9 - SARCOIDOSIS, UNSPECIFIED Status: Chronic Comment: - Plan C&S pending of abcess -: blood sugar much improved -: cont current tx, discuss DC with Computer Systems Security Administrator * .
[2018-06-24] MEDS: Saccharomyces boulardii 250 MG CAP PO SCH (08:55)
[2018-06-24] MEDS: azaTHIOprine 50 MG TAB PO SCH (08:55)
[2018-06-24] MEDS: Amlodipine 5 MG TAB PO SCH (08:55)
[2018-06-24] MEDS: Famotidine 20 MG TAB PO SCH ×2 (08:55→21:43)
[2018-06-24] MEDS: Atorvastatin Calcium 10 MG TAB PO SCH (08:55)
[2018-06-24] MEDS: Enoxaparin Sodium 40 MG/0.4 ML SYRINGE SC SCH (08:55)
[2018-06-24] MEDS: HumaLOG 300 UNITS/3 ML VIAL SC SCH ×2 (10:37→21:44)
[2018-06-24] MEDS: NPH, Human Insulin Isophane 300 UNIT/3 ML VIAL SC SCH ×2 (10:42→17:15)
[2018-06-24] MEDS: Nebivolol HCl 2.5 MG TAB PO SCH (10:42)
--- NOTE | 2018-06-24 12:34 | PDOC.CTH ---
Cardiology Progress Note - Subjective She is doing well. No new issues. No more fevers. - Objective Vital Signs Temp Pulse Resp BP BP Pulse Ox 06/24/18 11:30 97.8 F 90 16 137/80 95 06/24/18 08:55 90 133/89 06/24/18 08:45 92 L 06/24/18 07:30 97.2 F L 90 18 133/89 92 L 06/24/18 04:00 97.9 F 92 18 125/81 92 L Weight 253 lb 1.6 oz 06/23/18 06/24/18 06/25/18 06:59 06:59 06:59 Intake Total 3120 Balance 3120 - Physical Examination General/Neuro: alert & oriented x3, NAD Neck: no JVD present Lungs: unlabored respirations Heart: RRR Abdomen: NT/ND Extremities: + edema B (1+) - Labs Result Diagrams: 06/23/18 05:18 06/22/18 05:41 - Assessment/Plan 1. Sinus tachycardia 2. Vulvar abscess. 3. HTN 4. COPD/Asthma PLAN: - Continue abx per primary team - Tachycardia likely related to infectious process and pain. - No new recs. Continue current meds for now. - Will sign out. Please call with any questions.
[2018-06-24 15:59] LABS: Vancomycin, Trough 29.3 ug/mL
[2018-06-24] MEDS: HumaLOG 300 UNITS/3 ML VIAL SC PRN (17:13)
[2018-06-24] MEDS: Nortriptyline HCl 25 MG CAP PO SCH (21:44)
[2018-06-25] MEDS: Piperacillin/Tazobactam 3.375 GM in Sodium Chloride 0.9% 100 ML IVPB SCH (02:05)
[2018-06-25] MEDS ORDERED: Vancomycin HCl 1.75 GM in Sodium Chloride 0.9% 500 ML IVPB SCH (04:00)
[2018-06-25] MEDS: Sodium Chloride 0.9% 1,000 ML IV SCH (04:07)
[2018-06-25] MEDS: Levothyroxine Sodium 25 MCG TAB PO SCH (06:07)
[2018-06-25] MEDS: traMADol HCl 50 MG TAB PO SCH (06:08)
--- NOTE | 2018-06-25 07:55 | PRG ---
DATE OF SERVICE: 06/25/2018 The patient is a 53-year-old female who was admitted primarily for sepsis and a vulvar abscess. The patient now is about 48 hours out from I&D of the abscess on vancomycin and Zosyn. The patient this morning reports that her pain is much improved. PHYSICAL EXAMINATION: VITAL SIGNS: Temperature 98.6, blood pressure of 93, respiratory rate of 16, satting 93% on room air , blood pressure 138/87. Bacterial cultures of the vulva are still pending. ASSESSMENT AND PLAN: The patient is a 53-year-old female with a left-sided vulvar abscess that was a ble to be lanced and drained about a day and a half ago. The patient clinically has improved signifi cantly since that occurred. I have changed her regimen to an oral regimen of Bactrim, which she shou ld continue for another 10 days. The vulvar abscess has been packed and will be evaluated today for need to continue packing. From our standpoint, the patient can be discharged home and continued on o ral antibiotics with need to follow up with an REGISTRY NP in the next week or so.
[2018-06-25 08:19] VITALS: TEMP 97.3
[2018-06-25] MEDS: NPH, Human Insulin Isophane 300 UNIT/3 ML VIAL SC SCH (08:21)
[2018-06-25] MEDS ORDERED: Sulfameth/Trimethoprim DS 800-160mg TAB PO SCH (09:00)
[2018-06-25] MEDS: Nebivolol HCl 2.5 MG TAB PO SCH (09:24)
[2018-06-25] MEDS: Enoxaparin Sodium 40 MG/0.4 ML SYRINGE SC SCH (09:24)
[2018-06-25] MEDS: Atorvastatin Calcium 10 MG TAB PO SCH (09:24)
[2018-06-25] MEDS: Saccharomyces boulardii 250 MG CAP PO SCH (09:24)
[2018-06-25] MEDS: Amlodipine 5 MG TAB PO SCH (09:25)
[2018-06-25] MEDS: azaTHIOprine 50 MG TAB PO SCH (09:25)
--- NOTE | 2018-06-25 09:25 | PDOC.EVN ---
Event Note - Event Note Event Note: OBGYN Attending Note 06/25/18 RM [id number] Patient seen at bedside and left labial abscess site still draining slightly but decreased pain to palpation, and decreased induration. Wound packed with iodophore strip by Dr Mcleod and me. Info given to change once QS her 21 yo daughter at home will assist No fever Improved clinically.... Culture with GNRs preliminary Left labial abscess in multiple medical comorbiditis. We will sign off Home with PO Bactrim as written by Dr Cheek Will attempt to contact IM physician F/U at [facility] in 1 week
[2018-06-25] MEDS: Famotidine 20 MG TAB PO SCH (09:26)
[2018-06-25] MEDS: HumaLOG 300 UNITS/3 ML VIAL SC SCH (09:26)
[2018-06-25 09:27] VITALS: BP 161/109
--- NOTE | 2018-06-25 10:53 | DIS ---
TRANSFER OF CARE NOTE DATE OF ADMISSION: 06/19/2018 DATE OF DISCHARGE: 06/25/2018 PRIMARY CARE PROVIDER: Dr. Raina Boss DISPOSITION: The patient was discharged home. FINAL DIAGNOSES: 1. Abscess of the vulva. 2. Sarcoidosis. 3. Diabetes mellitus type 2. 4. Hypertension. 5. Sepsis syndrome. 6. Normocytic normochromic anemia. 7. Hypothyroidism. DISCHARGE MEDICATIONS: Septra-DS p.o. b.i.d. for 10 days, Lipitor 10 mg a day, levothyroxine 25 mcg a day, Imuran 100 mg a day, tramadol 50 mg p.o. q.8 hours p.r.n., amlodipine 5 mg a day, aspirin 81 m g a day, nortriptyline 25 mg a day, atorvastatin 10 mg a day, regular insulin per sliding scale, albu terol HFA 2 puffs q.4 hours p.r.n., NPH insulin 40 units subcutaneously b.i.d. DIET: Diabetic. ALLERGIES: None. CODE STATUS: FULL. PENDING AT THE TIME OF DISCHARGE: Nothing. HOSPITAL COURSE: The patient admitted to [facility] and subsequently referred to the [facility] for nausea, vomiting, diarrhea with abscess in the vulva. PERTINENT LABORATORY DATA: Initial white count 15.5, hemoglobin 10.2, platelet count 276,000. Sodiu m 133, potassium 4.0, renal function normal. Blood sugar 269, alkaline phosphatase 163. Liver funct ion tests normal otherwise. Blood cultures were done. IV antibiotics started, vancomycin and Zosyn. LOOM STOP CHECKER was consulted. Dr. Adriel Tirado recommended an tibiotics followup. The patient had a tachycardia and for some reason, Cardiology was consulted. Ec ho showed 60-65% with some grade I diastolic dysfunction. In actuality, her tachycardia was related to her fever, early temperatures 100.3, 100.6, 100.4, 100.9. She has now been afebrile for 48 hours. On 06/22/2018 left labial abscess was incised and drained. Basically, the culture revealed nothing. There were some yeast cells and some gram negative rods. The patient improved steadily post-incisio n. Her blood sugars, which were high at first, in the 300-400 range, rapidly dropped down. Post I&D or last four blood sugars were 136, 78, 175, 178, 179, 78. The incision and drainage was done by Dr Eusebia Mcleod. The patient is doing well at the time of discharge, she is being discharged for follow up with PCP in 1 week. She is to follow up with LOOM STOP CHECKER in 1 week. She is being referred to [facility] re for wound care of her abscess.
[2018-06-26] MEDS ORDERED: Levothyroxine Sodium 25 MCG TAB PO SCH (06:00)
[2018-06-26] MEDS ORDERED: Amlodipine 5 MG TAB PO SCH (09:00)
[2018-06-26] MEDS ORDERED: Atorvastatin Calcium 10 MG TAB PO SCH (09:00)
== END 2018-06-25 11:50 | disposition home or self-care (01) | DRG 854 ==
LOC: ERS 22:50 → SURG A 06-20 02:37 → OBSVTOIN 06-20 02:37
PROVIDERS: ADMIT Internal Medicine; ATTEND Internal Medicine
PROC: 0U9M0ZZ Drainage of Vulva, Open Approach (ICD-10-PCS; principal; 2018-06-22)
DX: A41.9 Sepsis, unspecified organism (principal); N76.4 Abscess of vulva; Z68.41 Body mass index [BMI] 40.0-44.9, adult; D68.9 Coagulation defect, unspecified; E11.628 Type 2 diabetes mellitus with other skin complications; Z79.4 Long term (current) use of insulin; E78.5 Hyperlipidemia, unspecified; I10 Essential (primary) hypertension; E03.9 Hypothyroidism, unspecified; E66.01 Morbid (severe) obesity due to excess calories; D64.9 Anemia, unspecified; N76.2 Acute vulvitis; M54.9 Dorsalgia, unspecified; G89.29 Other chronic pain; J06.9 Acute upper respiratory infection, unspecified; J44.9 Chronic obstructive pulmonary disease, unspecified; F41.9 Anxiety disorder, unspecified; F32.9 Major depressive disorder, single episode, unspecified; K52.9 Noninfective gastroenteritis and colitis, unspecified; Z91.19 Patient's noncompliance with other medical treatment and regimen
CPT/HCPCS: 36415; 36416; 76705; 80048; 80053; 80202; 83036; 84443; 85025; 85027; 86140; 87070; 87205; 93306; 96365; J1650; J1815; J2001; J2270; J2405; J2543; J3370; J7050; J7500; S0028

== ENCOUNTER 2019-05-15 19:59 | Emergency (ER) | payer SELFPAY ==
[2019-05-15] MEDS ORDERED: Morphine 4 MG/ML VIAL ONE (22:43)
--- NOTE | 2019-05-15 23:13 | RAD ---
PORTABLE CHEST ONE VIEW: 05/15/19 at 10:59 p.m. HISTORY: Syncope. FINDINGS: Comparison made with exam of 06/19/18. The heart size is normal. There is continued elevation of the right hemidiaphragm. No focal areas of consolidation, pneumothoraces, or pleural effusions are seen. The metallic density in the left lower chest is again noted. IMPRESSION: No acute process. POS: [facility]
[2019-05-15 23:15] LABS: #Eosinphils 0.2 thou/uL (0.0-0.7); #Lymphocytes 3.1 thou/uL (1.20-3.40); #Monocytes 0.4 thou/uL (0.11-0.59); %Basophils 0.1 % (0.0-1.0); %Lymphocytes 28.7 % (21.0-51.0); %Monocytes 3.4 % (0.0-10.0); %Neutrophils 65.8 % (42.0-75.0); Mean Corpuscular HGB CONC 32.1 g/dL (32.0-36.0); Mean Corpuscular Hemoglobin 26.5 pg (27.0-31.0); Mean Corpuscular Volume 82.6 fL (78.0-98.0); Mean Platelet Volume 6.1 fL (7.4-10.4); Platelet Count 318 thou/uL (130-400); RBC Distribution Width 14.3 % (11.5-14.5); Red Blood Cell (RBC) Count 4.53 mill/uL (4.20-5.40); White Blood Cell (WBC) Count 10.7 thou/uL (4.8-10.8)
[2019-05-15 23:33] LABS: ALT (SGPT) 14 U/L (8-55); AST (SGOT) 30 U/L (5-34); Albumin 3.2 g/dL (3.5-5.0); Alkaline Phosphatase 164 U/L (40-150); Anion Gap 14 mmol/L (10-20); BUN (Urea Nitrogen) 14 mg/dL (9.8-20.1); Bilirubin, Total Less than 0.2 mg/dL (0.2-1.2); CK (CPK) 98 U/L (29-168); Calc. Creatinine Clearance 0 mL/min (70-130); Calcium 8.5 mg/dL (7.8-10.44); Carbon Dioxide 26 mmol/L (22-29); Chloride 98 mmol/L (98-107); Estimated GFR-MDRD 86; Globulin 4.1 g/dL (2.4-3.5); Glucose 378 mg/dL (70-105); Lipase 17 U/L (8-78); Potassium 4.6 mmol/L (3.5-5.1); Protein, Total 7.3 g/dL (6.0-8.3); Sodium 133 mmol/L (136-145)
--- NOTE | 2019-05-15 23:44 | CT ---
CT LUMBAR SPINE WITHOUT IV CONTRAST: 05/15/19 HISTORY: Trauma, low back pain. FINDINGS/IMPRESSION: Degenerative changes are present. No fracture or subluxation is identified. Broad based disc bulges a re seen at L4-5 and L5-S1 levels with probable bilateral neural foraminal stenoses at these levels. POS: [facility]
--- NOTE | 2019-05-15 23:48 | CT ---
CT PELVIS WITHOUT CONTRAST: 05/15/19 HISTORY: Trauma, pelvic pain, hip pain. FINDINGS/IMPRESSION: There are degenerative changes in the lower lumbar spine and SI joints. No fracture or dislocation is seen. POS: [facility]
--- NOTE | 2019-05-16 09:22 | CT ---
PRELIMINARY REPORT/[facility]/EMERGENCY AFTER HOURS PROCEDURE: EXAM: CT Angiography Chest With Contrast EXAM DATE/TIME: 05/16/2019 12:11 AM CLINICAL HISTORY: 53 years old, female; Chest pain; Patient HX: F53 reports to ED C/O fall. PT reports pain in right fl ank and hip, hitting head with no loc. PT fell on 05/10. Pmhx mass left lung and breast. TECHNIQUE: Imaging protocol: Computed tomographic angiography of the chest with intravenous contrast. 3D renderi ng: MIP reconstructed images were created and reviewed. COMPARISON: No relevant prior studies available. FINDINGS: Pulmonary arteries: Normal. No pulmonary emboli. Aorta: Unremarkable. No aortic aneurysm. No aortic dissection. Lungs: 1.8 cm irregular right lower lobe pulmonary nodule, potentially malignant. Lungs otherwise venu ar. Pleural space: Unremarkable. No pneumothorax. No pleural effusion. Heart: Unremarkable. No cardiomegaly. No pericardial effusion. Mediastinum: Esophagus is unremarkable. Spleen: Borderline splenomegaly. Liver also appears enlarged. Lymph nodes: Mild right hilar lymphadenopathy measuring up to 1.1 cm in short axis. Bones/joints: Unremarkable. No acute fracture. Soft tissues: Unremarkable. IMPRESSION: 1. Borderline splenomegaly. Liver also appears enlarged. 2. 1.8 cm irregular right lower lobe pulmonary nodule, potentially malignant. 3. Mild right hilar lymphadenopathy measuring up to 1.1 cm in short axis. Thank you for allowing us to participate in the care of your patient. Dictated and Authenticated by: Nahun Peña MD 05/16/2019 12:32 AM Central Time ([place] & [place]) FINAL REPORT EMERGENCY AFTER HOURS CT ANGIOGRAM CHEST WITH 3D RENDERING: Date: 05/16/19 Time: 0013 hours FINDINGS/IMPRESSION: Hepatomegaly with borderline splenomegaly. 1.8 cm diameter irregularly shaped right lower lobe pulmon lillie nodule. Minimal right hilar lymphadenopathy with lymph nodes up to 1.1 cm short axis. No convincing CT evidence for acute pulmonary embolism. Report in agreement with preliminary report given on-call by Josiah. CODE LN. POS: [facility]
== END 2019-05-16 01:28 | disposition home or self-care (01) ==
LOC: ERS 19:59
DX: M51.26 Other intervertebral disc displacement, lumbar region (principal); R91.1 Solitary pulmonary nodule; M25.552 Pain in left hip; E11.9 Type 2 diabetes mellitus without complications; E66.01 Morbid (severe) obesity due to excess calories; I10 Essential (primary) hypertension; J45.909 Unspecified asthma, uncomplicated; F41.9 Anxiety disorder, unspecified; F32.9 Major depressive disorder, single episode, unspecified; W18.30XA Fall on same level, unspecified, initial encounter
CPT/HCPCS: 36415; 71045; 71275; 72131; 72192; 80053; 82550; 83690; 84484; 85025; 85379; 93005; 96361; 96374; J2270; Q9966

== ENCOUNTER 2022-08-14 15:40 | Emergency (ER) | payer OTHER ==
[2022-08-14] MEDS ORDERED: Aspirin Chewable 81 MG TAB ONE (16:14)
[2022-08-14 16:20] LABS: #Eosinphils 0.2 thou/uL (0.0-0.7); #Lymphocytes 2.9 thou/uL (1.20-3.40); #Monocytes 0.5 thou/uL (0.11-0.59); #Neutrophils 7.6 thou/uL (1.40-6.50); %Basophils 0.2 % (0.0-1.0); %Eosinophils 1.6 % (0.0-10.0); %Monocytes 4.5 % (0.0-10.0); %Neutrophils 67.7 % (42.0-75.0); Hemoglobin 12.9 g/dL (12.0-16.0); Mean Corpuscular HGB CONC 30.8 g/dL (32.0-36.0); Mean Corpuscular Hemoglobin 26.4 pg (27.0-31.0); Mean Corpuscular Volume 85.6 fl (78.0-98.0); Mean Platelet Volume 6.5 fL (7.4-10.4); Platelet Count 308 10x3/uL (130-400); RBC Distribution Width 13.5 % (11.5-14.5); Red Blood Cell (RBC) Count 4.89 mill/uL (4.20-5.40); White Blood Cell (WBC) Count 11.3 10x3/uL (4.8-10.8)
[2022-08-14 16:43] LABS: ALT (SGPT) 12 U/L (8-55); AST (SGOT) 10 U/L (5-34); Albumin 3.7 g/dL (3.5-5.0); Alkaline Phosphatase 140 U/L (40-110); Anion Gap 13 mmol/L (10-20); BUN (Urea Nitrogen) 10 mg/dL (9.8-20.1); Bilirubin, Total 0.2 mg/dL (0.2-1.2); Calc. Creatinine Clearance 0 mL/min (70-130); Calcium 8.2 mg/dL (7.8-10.44); Carbon Dioxide 17 mmol/L (22-29); Chloride 108 mmol/L (98-107); Estimated GFR 90; Globulin 3.6 g/dL (2.4-3.5); Glucose 294 mg/dL (70-105); Lipase 56 U/L (8-78); Potassium 4.1 mmol/L (3.5-5.1); Protein, Total 7.3 g/dL (6.0-8.3); Sodium 134 mmol/L (136-145)
== END 2022-08-14 18:39 | disposition left against medical advice (07) ==
LOC: ERS 15:40
DX: Z53.21 Procedure and treatment not carried out due to patient leaving prior to being seen by health care provider (principal)
CPT/HCPCS: 36415; 71045; 80053; 83690; 84484; 85025; 93005

== ENCOUNTER 2024-07-29 11:43 | Day surgery (SDC) | payer OTHER ==
[2024-07-28 10:01] VITALS: BMI 53.2
[2024-07-29] MEDS ORDERED: Lidocaine 1% w/Epinephrine 1:100K 20 ML VIAL ONE (12:28)
== END 2024-07-29 13:18 | disposition home or self-care (01) ==
LOC: CCL 11:43
PROVIDERS: ATTEND Internal Medicine Cardiovascular Disease
DX: R55 Syncope and collapse (principal); R07.9 Chest pain, unspecified; M79.89 Other specified soft tissue disorders; I10 Essential (primary) hypertension; E11.9 Type 2 diabetes mellitus without complications; E78.5 Hyperlipidemia, unspecified; J45.909 Unspecified asthma, uncomplicated; D86.9 Sarcoidosis, unspecified; Z87.891 Personal history of nicotine dependence; Z90.49 Acquired absence of other specified parts of digestive tract; Z98.51 Tubal ligation status; Z91.040 Latex allergy status; Z79.82 Long term (current) use of aspirin; Z79.899 Other long term (current) drug therapy
CPT/HCPCS: 36416